=== PATIENT | female | born 1945 | race Caucasian/White ===

== ENCOUNTER 2021-02-13 18:36 | Emergency (ER) | payer OTHER, SELFPAY ==
--- NOTE | ~2021-02-13 | XR_ITS ---
EXAMINATION: XR CHEST CLINICAL INFORMATION: Low SP02, cough. COMPARISON: 07/29/2019 chest radiographs. TECHNIQUE: 2 views of the chest were obtained. FINDINGS: There is mild elevation of the right hemidiaphragm. Mild linear markings are seen at the left lung base. No pleural effusions. The heart and mediastinal structures are unremarkable. XR/XR chest 2V IMPRESSION: Mild left basilar linear atelectasis. A developing infiltrate cannot be excluded.
[2021-02-13 19:33] VITALS: BP 124/49; PULSE 94; RESP 16; TEMP 37; O2SAT 92; BMI 27.9
[2021-02-13 20:03] LABS: COVID-19 Test Positive (Negative); IDNOW Serial# 9DD0AD1C
[2021-02-13 20:26] VITALS: BP 103/42; PULSE 85; RESP 16; TEMP 37.8; O2SAT 93
[2021-02-13 22:13] LABS: Basophils Percent Auto 0.2 % (0-2); Imm Gran Abs Auto 0.02 X10*3/uL (0.00-0.03); Imm Gran Pct Auto 0.3 % (0.0-0.4); MANUAL DIFF FLAG SCAN; PLT CLUMP 1; SCAN SMEAR FLAG 1
[2021-02-13 22:15] LABS: Hematocrit 39.2 % (37-47); Hemoglobin 13.2 g/dl (12.0-16.0); Lymphocytes Absolute Auto 0.8 X10*3/uL (1.2-4.9); Lymphocytes Percent Auto 12.9 % (20-40); Mean Corpuscular HGB Conc 33.7 g/dl (31.0-35.0); Mean Corpuscular Hemoglobin 28.6 pg (27.0-33.0); Mean Platelet Volume 11.1 fL (9.4-12.3); Monocytes Absolute Auto 0.6 X10*3/uL (0.1-1.2); Monocytes Percent Auto 10.2 % (2-11); Neutrophils Absolute Auto 4.5 X10*3/uL (2.0-8.3); Neutrophils Percent Auto 76.4 % (45-73); Platelet Count 123 X10*3/uL (160-400); Red Blood Count 4.61 X10*6/uL (4.20-5.50); Red Cell Distribution Width 13.8 % (11.0-16.0); White Blood Count 5.9 X10*3/uL (4.8-10.8)
[2021-02-13] MEDS: dexAMETHasone sod phosphate 4 MG/ML VIAL IVPUSH (22:16)
[2021-02-13] MEDS: cefTRIAXone sodium 1 GM in 0.9 % Sodium Chloride 50 ML IV (22:16)
[2021-02-13] MEDS: 0.9 % Sodium Chloride 1,000 ML 999 ML IVCONT (22:17)
[2021-02-13 22:21] LABS: D Dimer 869 NG/ML
[2021-02-13 22:23] VITALS: BP 118/35; PULSE 88; RESP 18; O2SAT 92
[2021-02-13 22:24] LABS: Lactic Acid 1.1 mmol/L (0.5-2.0)
[2021-02-13 22:26] LABS: Anion Gap 12 (12-20); Blood Urea Nitrogen 14 mg/dL (9-16); Calcium 8.6 mg/dL (8.4-10.2); Carbon Dioxide 27 mmol/L (22-29); Chloride 99 mmol/L (96-108); Creatinine Clr Calc Pharmacy 77.7; Estimated Glomerular Filt Rate > 60; Glucose Random 120 mg/dL (60-115); Potassium 3.7 mmol/L (3.3-5.1); Sodium 134 mmol/L (135-145)
[2021-02-13 22:37] LABS: SLIDE REVIEW VERIFIED
[2021-02-13 23:07] VITALS: BP 158/66; PULSE 70; RESP 16; O2SAT 99
--- NOTE | 2021-02-13 23:11 | ED.URI ---
HPI - URI/Sore Throat General Chief Complaint: Upper Respiratory Symptoms Stated Complaint: not feeling good Time Seen by Provider: 02/13/21 21:23 Source: patient and family Mode of arrival: ambulatory Limitations: no limitations History of Present Illness HPI Narrative: Patient has been sick for last 3 weeks with cold cough symptoms loss hers taste headache body aches dizziness coughing up mucopurulent phlegm other family member also sick patient not been vaccinated against COVID-19 denies any significant shortness of breath saturating 93% at room air Related Data Previous Rx's Medication Instructions Recorded lidocaine 5 % topical patch 1 patch TOPICAL DAILY #30 ea 03/24/20 naproxen 500 mg tablet 500 mg PO BID PRN #30 tab 03/24/20 cefpodoxime 200 mg tablet 200 mg PO BID #20 tab 02/13/21 dexamethasone 6 mg tablet 6 mg PO DAILY #7 tab 02/13/21 (Decadron) Allergies Allergy/AdvReac Type Severity Reaction Status Date / Time cortisone [CORTISONE] Allergy Mild RASH Verified 02/13/21 19:33 erythromycin base Allergy Unknown RASH Verified 02/13/21 19:33 [ERYTHROMYCIN BASE] nitrofurantoin Allergy Unknown RASH Verified 02/13/21 19:33 [From MACROBID] Sulfa (Sulfonamide Allergy Unknown HIVES Verified 02/13/21 19:33 Antibiotics) [SULFA (SULFONAMIDE ANTIBIOTICS)] tetanus and diphtheria Allergy Unknown UNKNOWN Verified 02/13/21 19:33 toxoids [TETANUS&DIPHTHERIA TOXOID] Cortisone Allergy Unknown Rash Uncoded 02/13/21 19:33 Macrolids Allergy Unknown Rash Uncoded 02/13/21 19:33 sulfa drugs Allergy Unknown Rash Uncoded 02/13/21 19:33 Tetanus Allergy Unknown Rash Uncoded 02/13/21 19:33 tetnaus toxoid Allergy Unknown Rash Uncoded 02/13/21 19:33 Review of Systems Review of Systems: Yes all other systems are reviewed and are negative PMFSH Past Medical History Medical History No known health problems Social History Social History Advance Directives: No Advance Directives Information Provided: No Physical Exam Vital Signs: Vital Signs: Last Vital Signs Temp 100.1 F 02/13/21 20:26 Pulse 82 02/13/21 23:34 Resp 16 02/13/21 23:34 BP 130/50 L 02/13/21 23:34 Pulse Ox 93 02/13/21 23:34 Body Mass Index 27.9 Appearance: Alert. Oriented X3. No acute distress. Eyes: PERRLA, No Nystagmus ENT: Pharynx normal. Oral Mucosa moist hard of hearing Neck: Normal inspection. Neck supple. CVS: Normal heart rate and rhythm. Pulses normal. Respiratory: No respiratory distress. Equal air entry bilateral, no wheezing/rales/rhonchi Abdomen: Soft and nontender. Bowel sounds are present, no mass palpable, no CVA tenderness Skin: Skin warm and dry. Normal skin color. Normal skin turgor. Extremities: No lower extremity edema. MDM - URI/Sore Throat MDM Narrative Medical decision making narrative: Patient with COVID-19 infection with no acute shortness of breath will discharge patient home on Decadron and cefpodoxime advised to come back to the ER if increased shortness of breath Lab Data Attestation: I reviewed the patient's lab results. Result diagrams: 02/13/21 21:57 02/13/21 21:57 Labs: Lab Results 02/13/21 02/13/21 02/13/21 Range/Units 19:45 21:57 21:57 WBC 5.9 (4.8-10.8) X10*3/uL RBC 4.61 (4.20-5.50) X10*6/uL Hgb 13.2 (12.0-16.0) g/dl Hct 39.2 (37-47) % MCV 85.0 (80-98) fL MCH 28.6 (27.0-33.0) pg MCHC 33.7 (31.0-35.0) g/dl RDW 13.8 (11.0-16.0) % Plt Count 123 L (160-400) X10*3/uL MPV 11.1 (9.4-12.3) fL Immature Gran % (Auto) 0.3 (0.0-0.4) % Neut % (Auto) 76.4 H (45-73) % Lymph % (Auto) 12.9 L (20-40) % [place] % (Auto) 10.2 (2-11) % Eos % (Auto) 0.0 (0-4) % Baso % (Auto) 0.2 (0-2) % Lymph # (Auto) 0.8 L (1.2-4.9) X10*3/uL [place] # (Auto) 0.6 (0.1-1.2) X10*3/uL Eos # (Auto) 0.0 (0.0-0.4) X10*3/uL Baso # (Auto) 0.0 (0.0-0.2) X10*3/uL Abs Immat Gran (auto) 0.02 (0.00-0.03) X10*3/uL Absolute Neuts (auto) 4.5 (2.0-8.3) X10*3/uL Absolute Nucleated RBC 0.000 (0.0-0.012) X10*3/uL Nucleated RBC % (auto) 0.0 (0.0-0.2) /100WBC Smear Tech's Comments VERIFIED D-Dimer NG/ML Sodium 134 L (135-145) mmol/L Potassium 3.7 (3.3-5.1) mmol/L Chloride 99 (96-108) mmol/L Carbon Dioxide 27 (22-29) mmol/L Anion Gap 12 (12-20) BUN 14 (9-16) mg/dL Creatinine 0.73 (0.5-1.4) mg/dL Estim Creat Clear Calc 77.7 Estimated GFR > 60 Random Glucose 120 H (60-115) mg/dL Lactic Acid (0.5-2.0) mmol/L Calcium 8.6 (8.4-10.2) mg/dL COVID-19 (HELEN) Positive A (Negative) COVID-19 Clin Com See Note 02/13/21 02/13/21 Range/Units 21:57 21:57 WBC (4.8-10.8) X10*3/uL RBC (4.20-5.50) X10*6/uL Hgb (12.0-16.0) g/dl Hct (37-47) % MCV (80-98) fL MCH (27.0-33.0) pg MCHC (31.0-35.0) g/dl RDW (11.0-16.0) % Plt Count (160-400) X10*3/uL MPV (9.4-12.3) fL Immature Gran % (Auto) (0.0-0.4) % Neut % (Auto) (45-73) % Lymph % (Auto) (20-40) % [place] % (Auto) (2-11) % Eos % (Auto) (0-4) % Baso % (Auto) (0-2) % Lymph # (Auto) (1.2-4.9) X10*3/uL [place] # (Auto) (0.1-1.2) X10*3/uL Eos # (Auto) (0.0-0.4) X10*3/uL Baso # (Auto) (0.0-0.2) X10*3/uL Abs Immat Gran (auto) (0.00-0.03) X10*3/uL Absolute Neuts (auto) (2.0-8.3) X10*3/uL Absolute Nucleated RBC (0.0-0.012) X10*3/uL Nucleated RBC % (auto) (0.0-0.2) /100WBC Smear Tech's Comments D-Dimer 869 NG/ML Sodium (135-145) mmol/L Potassium (3.3-5.1) mmol/L Chloride (96-108) mmol/L Carbon Dioxide (22-29) mmol/L Anion Gap (12-20) BUN (9-16) mg/dL Creatinine (0.5-1.4) mg/dL Estim Creat Clear Calc Estimated GFR Random Glucose (60-115) mg/dL Lactic Acid 1.1 (0.5-2.0) mmol/L Calcium (8.4-10.2) mg/dL COVID-19 (HELEN) (Negative) COVID-19 Clin Com Discharge Plan Discharge Clinical Impression: COVID-19 Patient Disposition: Home, Self-Care Instructions: COVID-19 (Coronavirus Disease 2019) (ED) Additional Instructions: Precautions and isolation as advised Antibiotic and Decadron as prescribed Follow-up with PCP or report to the ER if increased shortness of breath Prescriptions: New cefpodoxime 200 mg tablet 200 mg PO BID Qty: 20 RF: 0 dexamethasone [Decadron] 6 mg tablet 6 mg PO DAILY Qty: 7 RF: 0 No Action lidocaine 5 % adhesive patch,medicated 1 patch topical DAILY Qty: 30 RF: 0 naproxen 500 mg tablet 500 mg PO BID PRN (Reason: pain) Qty: 30 RF: 1 Interventions: ED Discharge Assessment Last Done: 02/13/21 23:36 Discharge Date/Time: 02/13/21 23:36
--- NOTE | 2021-02-13 23:12 | PC.NURSE ---
pt c collar taken off by provider.
[2021-02-13 23:34] VITALS: BP 130/50; PULSE 82; RESP 16; O2SAT 93
== END 2021-02-13 23:36 | disposition home or self-care (01) ==
PROVIDERS: Emergency Provider Internal Medicine; PCP Internal Medicine
DX: U07.1 COVID-19 (principal)
CPT/HCPCS: 36415; 71046; 80048; 83605; 85025; 85379; 87040; 87077; 87186; 87205; 87635; 96365; 96375; 99284; J0696; J1100

== ENCOUNTER 2021-02-15 10:11 | Inpatient (IN) | payer OTHER, SELFPAY ==
[2021-02-15] VITALS (7 sets, daily range): BP systolic 132–189; BP diastolic 70–86; PULSE 61–74; RESP 16–20; TEMP 36.4–37.2; O2SAT 88–97; BMI 28.3
--- NOTE | ~2021-02-15 | CT_ITS ---
EXAMINATION: CT ANGIOGRAM OF THE CHEST WITH AND WITHOUT CONTRAST (CT PULMONARY ANGIOGRAM FOR PE) CLINICAL INFORMATION: Reason for Exam COVID positive r/o PE COMPARISON: CT abdomen and pelvis October 2016 and chest x-ray from earlier the same day TECHNIQUE: Prior to contrast administration, noncontrast localization images were obtained. Subsequently, multidetector volumetric imaging was performed from the thoracic inlet to below the diaphragms following the administration of 65 mL Omnipaque 350 intravenous contrast. No contrast reaction reported Sagittal, coronal, and MIP oblique sagittal reformatted images were obtained on the CT workstation, uploaded to PACS, and reviewed. This CT examination was performed using dose optimization techniques as appropriate, variously including the following: *Automated exposure control *Adjustment of mA and/or kV according to patient size (this includes techniques or standardized protocols for targeted exams where dose is matched to indication/reason for exam; i.e. extremities or head) *Use of iterative reconstruction technique Total exam dose-length product 316 mGy-cm FINDINGS: QUALITY OF STUDY/CONTRAST BOLUS: Satisfactory. PULMONARY ARTERIES: No central or segmental pulmonary emboli. THORACIC AORTA: No aneurysm or dissection. LUNG: There are scattered areas of groundglass attenuation seen in the upper lobes, right greater than left, right middle lobe and lingula. There is a atelectasis or small infiltrate seen in the dependent bilateral lower lobes. There is mild generalized bronchiectasis. PLEURA: No pleural effusion or pneumothorax. MEDIASTINUM: Normal heart size. No pericardial effusion. No hilar or mediastinal lymphadenopathy. No evidence of septal bowing or right heart strain. CHEST WALL/AXILLA: No axillary or internal mammary lymphadenopathy. OSSEOUS STRUCTURES: No acute or suspicious osseous abnormality. UPPER ABDOMEN: There is pneumobilia seen in the liver. This is new from October 2016 CT scan. There is a 5 mm low-attenuation lesion high in the dome of the liver probably representing a cyst. This is unchanged from October 2016 exam. No reflux of contrast into the hepatic veins to suggest elevated right heart pressures. CT/CT angio chest PE protocol IMPRESSION: No evidence of pulmonary embolism. Scattered areas of groundglass attenuation and denser atelectasis or pneumonia in both lower lobes. Findings are compatible with Covid infection. VTE: negative
--- NOTE | ~2021-02-15 | XR_ITS ---
EXAMINATION: XR CHEST CLINICAL INFORMATION: Dyspnea COMPARISON: Previous chest x-ray 02/13/2021 TECHNIQUE: Frontal view of the chest was obtained. FINDINGS: The cardiac and mediastinal contours are stable. There is increasing atelectasis or infiltrate at the left lung base and new atelectasis or small infiltrate at the right lung base. There is no pleural effusion. There is slight elevation of the right hemidiaphragm. There are degenerative changes of the spine. XR/XR chest 1V IMPRESSION: Worsening bibasilar atelectasis or infiltrates, left greater than right.
--- NOTE | 2021-02-15 10:31 | ED.RECABL ---
HPI - Recheck/Abnormal Lab/Rx General Chief Complaint: Recheck/Abnormal Lab/Rx Stated Complaint: covid + Time Seen by Provider: 02/15/21 10:15 Source: patient and EMS Mode of arrival: EMS Limitations: no limitations History of Present Illness complaint: abnormal lab (+ blood cultures after visit on 02/13 for COVID - 2/2 [facility] in clusters called) Initial visit (ago): day(s) (2) Initial visit for: other (COVID symptoms) Returns today for: called because of abnormal lab/test Symptoms since prior visit: improved Context: called for abnormal lab result Associated symptoms: malaise and other (feels winded at times, she was sent home on cefpodoxime and dexamethasone took both today) Treatments prior to arrival: other (cefpodoxime and dexamethasone) Related Data Home Medications Medication Instructions Recorded Confirmed lidocaine 5 % topical patch 1 patch TOPICAL DAILY PRN 02/15/21 02/15/21 Previous Rx's Medication Instructions Recorded naproxen 500 mg tablet 500 mg PO BID PRN #30 tab 03/24/20 cefpodoxime 200 mg tablet 200 mg PO BID #20 tab 02/13/21 dexamethasone 6 mg tablet 6 mg PO DAILY #7 tab 02/13/21 (Decadron) Allergies Allergy/AdvReac Type Severity Reaction Status Date / Time cortisone [CORTISONE] Allergy Mild RASH Verified 02/13/21 19:33 erythromycin base Allergy Unknown RASH Verified 02/13/21 19:33 [ERYTHROMYCIN BASE] nitrofurantoin Allergy Unknown RASH Verified 02/13/21 19:33 [From MACROBID] Sulfa (Sulfonamide Allergy Unknown HIVES Verified 02/13/21 19:33 Antibiotics) [SULFA (SULFONAMIDE ANTIBIOTICS)] tetanus and diphtheria Allergy Unknown UNKNOWN Verified 02/13/21 19:33 toxoids [TETANUS&DIPHTHERIA TOXOID] Cortisone Allergy Unknown Rash Uncoded 02/13/21 19:33 Macrolids Allergy Unknown Rash Uncoded 02/13/21 19:33 sulfa drugs Allergy Unknown Rash Uncoded 02/13/21 19:33 Tetanus Allergy Unknown Rash Uncoded 02/13/21 19:33 tetnaus toxoid Allergy Unknown Rash Uncoded 02/13/21 19:33 Review of Systems Review of Systems: Constitutional : No Weight loss, No Fever, No Chills, pos Fatigue, pos Malaise ENT/Mouth : No sore throat, No Rhinorrhea Eyes: No Eye Pain, No Swelling, No Redness Cardiovascular : No Chest Pain, pos SOB, pos Dyspnea on Exertion, No Orthopnea, No Edema, No Palpitations Respiratory : pos Cough, No Sputum, No Wheezing Gastrointestinal : No Nausea, No Vomiting, No Diarrhea, No Constipation, No abdominal Pain, No Hematochezia, No Melena Genitourinary : No Dysuria, No Urinary Frequency, No Hematuria, Musculoskeletal : No joint pain, pos Myalgias, No Joint Swelling Skin : No Skin Lesions, No rash Neuro : No Weakness, No Numbness, No Dizziness, No Headache Psych : No Anxiety/Panic, No Depression Heme/Lymph: No Bruising, No Bleeding,No Lymphadenopathy Endocrine : No Polyuria, No Polydipsia All other systems reviewed and are negative [facility] Past Medical History Attestation statement: The following information was validated with the patient. Medical History (Updated 02/15/21 @ 13:59 by Mynor Pacheco MD) COVID-19 Neuropathy No known health problems Social History Social History Household Members: Spouse Patient Tobacco Use Status: Never used Tobacco Advance Directives: No Advance Directives Information Provided: No Physical Exam Vital Signs: Vital Signs: Last Vital Signs Pulse 73 02/15/21 12:24 Resp 16 02/15/21 10:22 BP 132/70 02/15/21 10:22 Pulse Ox 96 02/15/21 12:24 Oxygen Flow Rate 2 02/15/21 10:22 Body Mass Index 28.3 Appearance: Alert. Oriented X3. No acute distress. Eyes: Pupils equal, round and reactive to light. ENT: Pharynx normal. Neck: Normal inspection. Neck supple. CVS: Normal heart rate and rhythm. Pulses normal. Respiratory: No respiratory distress. Breath sounds decreased at bases - faint rhonchi noted Abdomen: Soft and nontender. Skin: Skin warm and dry. Normal skin color. Normal skin turgor. Extremities: No lower extremity edema. No calf ttp Neuro: Oriented X 3. No motor deficit. No sensory deficit. Course Course Course Narrative: 88% on RA - plan to admit for hypoxia CTA for PE ordered MDM - Recheck/Abnormal Lab/Rx MDM Narrative Medical decision making narrative: 75 yo female with neuropathy here with call back from 07/15 [facility] from 02/13 she has some dyspnea but no fevers, dry cough - at this time will repeat labs, CXR, COVID panel - observe for the need for O2. No CP. Cultures to be finalized at 2pm per lab Lab Data Result diagrams: 02/15/21 10:59 02/15/21 10:59 Labs: Lab Results 02/15/21 02/15/21 02/15/21 Range/Units 10:59 10:59 10:59 WBC 10.6 (4.8-10.8) X10*3/uL RBC 4.62 (4.20-5.50) X10*6/uL Hgb 13.3 (12.0-16.0) g/dl Hct 39.2 (37-47) % MCV 84.8 (80-98) fL MCH 28.8 (27.0-33.0) pg MCHC 33.9 (31.0-35.0) g/dl RDW 13.7 (11.0-16.0) % Plt Count 192 D (160-400) X10*3/uL MPV 11.4 (9.4-12.3) fL Immature Gran % (Auto) 0.3 (0.0-0.4) % Neut % (Auto) 82.1 H (45-73) % Lymph % (Auto) 8.6 L (20-40) % [place] % (Auto) 8.9 (2-11) % Eos % (Auto) 0.0 (0-4) % Baso % (Auto) 0.1 (0-2) % Lymph # (Auto) 0.9 L (1.2-4.9) X10*3/uL [place] # (Auto) 0.9 (0.1-1.2) X10*3/uL Eos # (Auto) 0.0 (0.0-0.4) X10*3/uL Baso # (Auto) 0.0 (0.0-0.2) X10*3/uL Abs Immat Gran (auto) 0.03 (0.00-0.03) X10*3/uL Absolute Neuts (auto) 8.7 H (2.0-8.3) X10*3/uL Absolute Nucleated RBC 0.000 (0.0-0.012) X10*3/uL Nucleated RBC % (auto) 0.0 (0.0-0.2) /100WBC D-Dimer 822 NG/ML Sodium 141 (135-145) mmol/L Potassium 3.6 (3.3-5.1) mmol/L Chloride 106 (96-108) mmol/L Carbon Dioxide 24 (22-29) mmol/L Anion Gap 15 (12-20) BUN 22 H D (9-16) mg/dL Creatinine 0.76 (0.5-1.4) mg/dL Estim Creat Clear Calc 75.0 Estimated GFR > 60 Random Glucose 125 H (60-115) mg/dL Lactic Acid (0.5-2.0) mmol/L Calcium 9.3 D (8.4-10.2) mg/dL Magnesium 2.3 (1.6-2.6) mg/dL Total Bilirubin 0.5 (0.0-1.0) mg/dL Direct Bilirubin 0.3 (0.0-0.5) mg/dL AST 41 H (5-31) U/L ALT 46 H (0-31) U/L Alkaline Phosphatase 48 (39-117) U/L Lactate Dehydrogenase 197 (122-220) U/L Total Creatine Kinase 343 H (26-140) U/L Total Protein 6.0 L (6.5-8.0) g/dL Albumin 3.7 (3.5-5.0) g/dL Urine Color Urine Appearance Urine pH (5.0-8.0) Ur Specific [place] (1.005-1.025) Urine Protein (NEG-TRACE) MG/DL Urine Glucose (UA) (NEG) MG/DL Urine Ketones (NEG) MG/DL Urine Blood (NEG) Urine Nitrite (NEG) Ur Leukocyte Esterase (NEG) Urine RBC (0) /HPF Urine WBC (0-4) /HPF Ur Squamous Epith Cells /LPF Urine Bacteria /LPF Hyaline Casts /LPF Urine Mucus /LPF 02/15/21 02/15/21 Range/Units 10:59 13:11 WBC (4.8-10.8) X10*3/uL RBC (4.20-5.50) X10*6/uL Hgb (12.0-16.0) g/dl Hct (37-47) % MCV (80-98) fL MCH (27.0-33.0) pg MCHC (31.0-35.0) g/dl RDW (11.0-16.0) % Plt Count (160-400) X10*3/uL MPV (9.4-12.3) fL Immature Gran % (Auto) (0.0-0.4) % Neut % (Auto) (45-73) % Lymph % (Auto) (20-40) % [place] % (Auto) (2-11) % Eos % (Auto) (0-4) % Baso % (Auto) (0-2) % Lymph # (Auto) (1.2-4.9) X10*3/uL [place] # (Auto) (0.1-1.2) X10*3/uL Eos # (Auto) (0.0-0.4) X10*3/uL Baso # (Auto) (0.0-0.2) X10*3/uL Abs Immat Gran (auto) (0.00-0.03) X10*3/uL Absolute Neuts (auto) (2.0-8.3) X10*3/uL Absolute Nucleated RBC (0.0-0.012) X10*3/uL Nucleated RBC % (auto) (0.0-0.2) /100WBC D-Dimer NG/ML Sodium (135-145) mmol/L Potassium (3.3-5.1) mmol/L Chloride (96-108) mmol/L Carbon Dioxide (22-29) mmol/L Anion Gap (12-20) BUN (9-16) mg/dL Creatinine (0.5-1.4) mg/dL Estim Creat Clear Calc Estimated GFR Random Glucose (60-115) mg/dL Lactic Acid 1.5 (0.5-2.0) mmol/L Calcium (8.4-10.2) mg/dL Magnesium (1.6-2.6) mg/dL Total Bilirubin (0.0-1.0) mg/dL Direct Bilirubin (0.0-0.5) mg/dL AST (5-31) U/L ALT (0-31) U/L Alkaline Phosphatase (39-117) U/L Lactate Dehydrogenase (122-220) U/L Total Creatine Kinase (26-140) U/L Total Protein (6.5-8.0) g/dL Albumin (3.5-5.0) g/dL Urine Color YELLOW Urine Appearance CLEAR Urine pH 6.0 (5.0-8.0) Ur Specific [place] 1.015 (1.005-1.025) Urine Protein 1+ H (NEG-TRACE) MG/DL Urine Glucose (UA) NEG (NEG) MG/DL Urine Ketones NEG (NEG) MG/DL Urine Blood NEG (NEG) Urine Nitrite NEG (NEG) Ur Leukocyte Esterase NEG (NEG) Urine RBC 0 (0) /HPF Urine WBC 0-2 (0-4) /HPF Ur Squamous Epith Cells 2+ /LPF Urine Bacteria TRACE /LPF Hyaline Casts 0-2 /LPF Urine Mucus 2+ /LPF Discharge Plan Discharge Clinical Impression: COVID-19, Hypoxia, Positive blood cultures, Pneumonia due to 2019-nCoV Patient Disposition: Admitted As Inpatient
[2021-02-15 11:09] LABS: MANUAL DIFF FLAG NO
[2021-02-15 11:10] LABS: Basophils Percent Auto 0.1 % (0-2); Hematocrit 39.2 % (37-47); Hemoglobin 13.3 g/dl (12.0-16.0); Imm Gran Abs Auto 0.03 X10*3/uL (0.00-0.03); Imm Gran Pct Auto 0.3 % (0.0-0.4); Lymphocytes Absolute Auto 0.9 X10*3/uL (1.2-4.9); Lymphocytes Percent Auto 8.6 % (20-40); Mean Corpuscular HGB Conc 33.9 g/dl (31.0-35.0); Mean Corpuscular Hemoglobin 28.8 pg (27.0-33.0); Mean Corpuscular Volume 84.8 fL (80-98); Mean Platelet Volume 11.4 fL (9.4-12.3); Monocytes Absolute Auto 0.9 X10*3/uL (0.1-1.2); Monocytes Percent Auto 8.9 % (2-11); Neutrophils Absolute Auto 8.7 X10*3/uL (2.0-8.3); Neutrophils Percent Auto 82.1 % (45-73); Platelet Count 192 X10*3/uL (160-400); Red Blood Count 4.62 X10*6/uL (4.20-5.50); Red Cell Distribution Width 13.7 % (11.0-16.0); White Blood Count 10.6 X10*3/uL (4.8-10.8)
--- NOTE | 2021-02-15 11:16 | PC.NURSE ---
ambulaTION TRIAL, PT DESAT TO 88 - REPORTING DIZZINESS AND sob. PT REPORTS DIZZINESS IS USUAL FOR HER SHE HAS EAR PROBLEMS. PUT PT BACK ON 2L NC
[2021-02-15 11:19] LABS: D Dimer 822 NG/ML; Lactic Acid 1.5 mmol/L (0.5-2.0)
[2021-02-15] MEDS: cefTRIAXone sodium 1 GM in 0.9 % Sodium Chloride 50 ML IV (11:26)
[2021-02-15 11:31] LABS: Alanine Aminotransferase 46 U/L (0-31); Albumin Level 3.7 g/dL (3.5-5.0); Alkaline Phosphatase 48 U/L (39-117); Anion Gap 15 (12-20); Aspartate Amino Transferase 41 U/L (5-31); Bilirubin Direct 0.3 mg/dL (0.0-0.5); Bilirubin Total 0.5 mg/dL (0.0-1.0); Blood Urea Nitrogen 22 mg/dL (9-16); Calcium 9.3 mg/dL (8.4-10.2); Carbon Dioxide 24 mmol/L (22-29); Chloride 106 mmol/L (96-108); Estimated Glomerular Filt Rate > 60; Glucose Random 125 mg/dL (60-115); Lactate Dehydrogenase 197 U/L (122-220); Magnesium 2.3 mg/dL (1.6-2.6); Potassium 3.6 mmol/L (3.3-5.1); Sodium 141 mmol/L (135-145)
[2021-02-15] MEDS: Doxycycline Hyclate 100 MG in 0.9 % Sodium Chloride 250 ML 166.67 MG IV (12:19)
[2021-02-15 13:26] LABS: Glucose Urine UA NEG (NEG); Leukocyte Esterase Urine NEG (NEG); Nitrite Urine NEG (NEG); Specific Gravity - Urine 1.015 (1.005-1.025); UACC Culture Trigger NO; Urine Blood NEG (NEG); Urine Ketones NEG (NEG); Urine Protein 1+ MG/DL (NEG-TRACE)
[2021-02-15 13:29] LABS: Appearance Urine CLEAR; Color Urine YELLOW
[2021-02-15 13:43] LABS: Bacteria Urine TRACE /LPF; Hyaline Casts Urine 0-2 /LPF; Mucus Urine 2+ /LPF; RBC Urine 0 /HPF (0); Squamous Epithelial Cell Urine 2+ /LPF; WBC Urine 0-2 /HPF (0-4)
--- NOTE | 2021-02-15 13:54 | P.HPHOSP_ITS ---
History of Present Illness Date of Service: 02/15/21 Chief Complaint: called to come to ED d/t positive blood cultures from earlier visit on 02/13 75 year female with no chronic medial condition, seen in ED on 02/13 with cold symptoms and diagonosed with covid and send home since she was not hypoxic, blood cultures were done routinely at that time and today cultures came back positive for gram positive cocci 2/2, no fever. Also noted to be hypoxic with O2 88 on room improved 97 with oxygen. Being admited for bacteremia. She is NOT vaccinated for covid. CXR shows worsening infiltrate and given Doxy and Ceftriaxone in ED Review of Systems Review of Systems: Gen: no fever Resp: no sob, + cough CV: no chest, no RODRIGUEZ, no leg edema GI: No n/v, no abd pain Neuro: No confusion Yes all other systems are reviewed and are negative [facility] Medical History (Updated 02/15/21 @ 13:59 by Mynor Pacheco MD) COVID-19 Neuropathy No known health problems Social History Household Members: Spouse Patient Tobacco Use Status: Never used Tobacco Advance Directives: No Advance Directives Information Provided: No Meds Allergies Allergy/AdvReac Type Severity Reaction Status Date / Time cortisone [CORTISONE] Allergy Mild RASH Verified 02/13/21 19:33 erythromycin base Allergy Unknown RASH Verified 02/13/21 19:33 [ERYTHROMYCIN BASE] nitrofurantoin Allergy Unknown RASH Verified 02/13/21 19:33 [From MACROBID] Sulfa (Sulfonamide Allergy Unknown HIVES Verified 02/13/21 19:33 Antibiotics) [SULFA (SULFONAMIDE ANTIBIOTICS)] tetanus and diphtheria Allergy Unknown UNKNOWN Verified 02/13/21 19:33 toxoids [TETANUS&DIPHTHERIA TOXOID] Cortisone Allergy Unknown Rash Uncoded 02/13/21 19:33 Macrolids Allergy Unknown Rash Uncoded 02/13/21 19:33 sulfa drugs Allergy Unknown Rash Uncoded 02/13/21 19:33 Tetanus Allergy Unknown Rash Uncoded 02/13/21 19:33 tetnaus toxoid Allergy Unknown Rash Uncoded 02/13/21 19:33 Active Medications: Current Medications Generic Name Dose Route Start Last Admin Trade Name Freq PRN Reason Stop Dose Admin Acetaminophen 650 mg 02/15/21 13:45 Acetaminophen 325 Mg Tablet PO Q6H PRN Pain, Mild (Pain Scale 1-3) Dexamethasone 6 mg 02/16/21 09:00 Dexamethasone 6 Mg Tablet PO DAILY [facility] Enoxaparin Sodium 40 mg 02/15/21 13:45 Enoxaparin Sodium 40 Mg/0.4 Ml Syringe SUBCUT Q24H [facility] Vancomycin HCl 750 mg/ Sodium 265 mls @ 265 mls/hr 02/15/21 14:00 Chloride IV Q12H SHAMAR Magnesium Hydroxide 30 ml 02/15/21 13:45 Milk Of Magnesia 30 Ml Oral.Susp PO DAILY PRN Constipation Melatonin 6 mg 02/15/21 13:45 Melatonin 3 Mg Tablet PO BEDTIME PRN Insomnia Pharmacy Consult 1 each 02/15/21 13:51 Consult Rx Vancomycin Dosing MISCELLANE DAILY PRN Consult order Sodium Chloride 3 ml 02/15/21 16:00 0.9 % Sodium Chloride Flush 3 Ml Syringe IVFLUSH QSHIFT [facility] Home Medications Medication Instructions Recorded Confirmed Last Taken Type lidocaine 5 % topical patch 1 patch TOPICAL DAILY PRN 02/15/21 02/15/21 Unknown History Physical Exam Vital Signs and Narrative: Vital Signs: Last Vital Signs Pulse 73 02/15/21 12:24 Resp 16 02/15/21 10:22 BP 132/70 02/15/21 10:22 Pulse Ox 96 02/15/21 12:24 Oxygen Flow Rate 2 02/15/21 10:22 Body Mass Index 28.3 Constitutional Awake and Alert, No apparent distress HEENT anicteric Neck Supple, No lymphadenopathy Cardiovascular RRR, No M/R/G, S1 S2, No S3 S4, No pedal edema Respiratory Lungs clear, No respiratory distress Gastrointestinal Non tender, Non-distended Skin No rash No lymphadenopathy Neurological Alert & oriented x3 Psychological Appropriate affect Results Labs CBC and Chem 7: 02/15/21 10:59 02/15/21 10:59 Labs: Laboratory Results - last 24 hr 02/15/21 02/15/21 02/15/21 10:59 10:59 10:59 MCV 84.8 MCH 28.8 MCHC 33.9 RDW 13.7 Plt Count 192 D MPV 11.4 Immature Gran % (Auto) 0.3 Neut % (Auto) 82.1 H Lymph % (Auto) 8.6 L [place] % (Auto) 8.9 Eos % (Auto) 0.0 Baso % (Auto) 0.1 Lymph # (Auto) 0.9 L [place] # (Auto) 0.9 Eos # (Auto) 0.0 Baso # (Auto) 0.0 Abs Immat Gran (auto) 0.03 Absolute Neuts (auto) 8.7 H Absolute Nucleated RBC 0.000 Nucleated RBC % (auto) 0.0 D-Dimer 822 Anion Gap 15 Estim Creat Clear Calc 75.0 Estimated GFR > 60 Random Glucose 125 H Lactic Acid Calcium 9.3 D Magnesium 2.3 Total Bilirubin 0.5 Direct Bilirubin 0.3 AST 41 H ALT 46 H Alkaline Phosphatase 48 Lactate Dehydrogenase 197 Total Creatine Kinase 343 H Total Protein 6.0 L Albumin 3.7 Urine Color Urine Appearance Urine pH Ur Specific [place] Urine Protein Urine Glucose (UA) Urine Ketones Urine Blood Urine Nitrite Ur Leukocyte Esterase Urine RBC Urine WBC Ur Squamous Epith Cells Urine Bacteria Hyaline Casts Urine Mucus 02/15/21 02/15/21 10:59 13:11 MCV MCH MCHC RDW Plt Count MPV Immature Gran % (Auto) Neut % (Auto) Lymph % (Auto) [place] % (Auto) Eos % (Auto) Baso % (Auto) Lymph # (Auto) [place] # (Auto) Eos # (Auto) Baso # (Auto) Abs Immat Gran (auto) Absolute Neuts (auto) Absolute Nucleated RBC Nucleated RBC % (auto) D-Dimer Anion Gap Estim Creat Clear Calc Estimated GFR Random Glucose Lactic Acid 1.5 Calcium Magnesium Total Bilirubin Direct Bilirubin AST ALT Alkaline Phosphatase Lactate Dehydrogenase Total Creatine Kinase Total Protein Albumin Urine Color YELLOW Urine Appearance CLEAR Urine pH 6.0 Ur Specific [place] 1.015 Urine Protein 1+ H Urine Glucose (UA) NEG Urine Ketones NEG Urine Blood NEG Urine Nitrite NEG Ur Leukocyte Esterase NEG Urine RBC 0 Urine WBC 0-2 Ur Squamous Epith Cells 2+ Urine Bacteria TRACE Hyaline Casts 0-2 Urine Mucus 2+ Imaging Radiologist's Impressions: Impressions Chest X-Ray 02/15/21 10:30 IMPRESSION: Worsening bibasilar atelectasis or infiltrates, left greater than right. Assessment and Plan (1) COVID-19: Status: Acute (2) Hypoxia: Status: Acute (3) Positive blood cultures: Status: Inactive (4) Pneumonia due to 2019-nCoV: Status: Acute (5) Gram-positive bacteremia: Status: Acute 75/F with acute hypoxic respiratory failure due to covid pneumonia, also with gram positive bacteremia of 2/2 from 02/13 1/ Acute hypoxic respiratory failur due to covid 19 2/Covid 19 pneumonia--in unvaccinated patient -Treat IV decadron -Oxygen and wean as tolereated -Empiric Ceftriaxone for pneumonia which is likely viral but could be superimposed bacteremia 2/ Gram positive cocci bacteremia--couid be contamination -Vancomycin to cover stapy -Repeat culture, if turns to be reall get ID consult, and echo DVT Prophylaxis with [employer] Stroke Does the patient have a stroke diagnosis?: No VTE Prior VTE?: No VTE Risk Level:: Medical - moderate - high VTE Device Contraindication: N/A - Device Ordered VTE Drug Contraindication: N/A - Med Ordered
--- NOTE | 2021-02-15 14:00 | PC.NURSE ---
Dr. Pacheco at bedside
[2021-02-15] MEDS: iohexoL 350 MG/ML 100 ML INFUS..BTL IV (14:42)
[2021-02-15] MEDS: vancomycin HCL 1,000 MG in 0.9 % Sodium Chloride 250 ML 270 MG IV (14:51)
[2021-02-15] MEDS: Enoxaparin Sodium 40 MG/0.4 ML SYRINGE SUBCUT (15:14)
[2021-02-15] MEDS: 0.9 % Sodium Chloride Flush 3 ML SYRINGE IVFLUSH ×2 (17:28→19:38)
[2021-02-16] MEDS: vancomycin HCL 1,000 MG in 0.9 % Sodium Chloride 250 ML 270 MG IV ×2 (02:43→14:29)
[2021-02-16 03:54] VITALS: BP 125/56; PULSE 82; RESP 18; TEMP 36.2; O2SAT 96
[2021-02-16 07:44] VITALS: BP 180/86; PULSE 64; RESP 18; TEMP 36.9; O2SAT 96
[2021-02-16 08:10] LABS: Creatinine Clr Calc Pharmacy 87.7; Estimated Glomerular Filt Rate > 60
[2021-02-16] MEDS: 0.9 % Sodium Chloride Flush 3 ML SYRINGE IVFLUSH ×2 (08:57→20:02)
[2021-02-16] MEDS: dexAMETHasone 6 MG TABLET PO (08:57)
[2021-02-16 09:16] VITALS: O2SAT 97
[2021-02-16 11:59] VITALS: BP 168/73; PULSE 62; RESP 18; TEMP 37.2; O2SAT 95
--- NOTE | 2021-02-16 13:33 | MHC.CM.PN ---
CM SPOKE WITH PT VIA T/C TO PTS CELL ([phone]). PT REPORTS SHE LIVES AT HOME WITH HER WHO IS BED BOUND, PT REPORTS THEIR SON IS THE GEOTECHNICIAN FOR BOTH OF THEM. PT REPORTS SHE HAS A CANE AND A WALKER AT HOME BUT USUALLY ONLY NEEDS THE CANE. PT ALSO HAS A CCA CM THAT CHECKS IN PERIODICALLY. PT DOES NOT HAVE A HCP BUT SAYS SHE HAS REQUESTED ONE BE SENT TO HER FROM HER PCP OFFICE BUT IS UNSURE IF IT EVER CAME. CM WILL SEND A BLANK DOCUMENT AND INFORMATION ALONG WITH PTS IMM COPY TO HER HOME. CURRENT DC PLAN IS HOME WITH RESUMPTION OF SERVICES FAMILY TO TRANSPORT
[2021-02-16] MEDS: Enoxaparin Sodium 40 MG/0.4 ML SYRINGE SUBCUT (14:29)
--- NOTE | 2021-02-16 14:47 | P.PNIM_ITS ---
Subjective Subjective Date of Service: 02/16/21 Interval History: f/u covid, hypoxia, better, O2 95 on 1 liter, no distrss Review of Systems Gen: no fever Resp: no sob, no cough CV: no chest, no RODRIGUEZ, no leg edema GI: No n/v, no abd pain Neuro: No confusion Physical Exam Vital Signs: Vital Signs: Last Vital Signs Temp 98.9 F 02/16/21 11:59 Pulse 62 02/16/21 11:59 Resp 18 02/16/21 11:59 BP 168/73 H 02/16/21 11:59 Pulse Ox 95 02/16/21 11:59 Oxygen Flow Rate 2 02/15/21 10:22 Body Mass Index 28.3 General: AO X 3, no acute distress Resp: CTA bilateral CVS: S1,S2,RRR GI: +BS, NT, no distention Skin: No rash Neuro: motor grossly intact Psych: appropriate affect Objective Data Active Medications Acetaminophen (Acetaminophen 325 Mg Tablet) 650 mg PO Q6H PRN PRN Reason: Pain, Mild (Pain Scale 1-3) Dexamethasone (Dexamethasone 6 Mg Tablet) 6 mg PO DAILY [facility] Last Admin: 02/16/21 08:57 Dose: 6 mg Documented by: JUAN DAVID Enoxaparin Sodium (Enoxaparin Sodium 40 Mg/0.4 Ml Syringe) 40 mg SUBCUT Q24H [facility] Last Admin: 02/16/21 14:29 Dose: 40 mg Documented by: JUA NDAVID Vancomycin HCl 1,000 mg/ (Sodium Chloride) 270 mls @ 270 mls/hr IV Q12H [facility] Last Admin: 02/16/21 14:29 Dose: 270 mls/hr Documented by: JUAN DAVID Magnesium Hydroxide (Milk Of Magnesia 30 Ml Oral.Susp) 30 ml PO DAILY PRN PRN Reason: Constipation Melatonin (Melatonin 3 Mg Tablet) 6 mg PO BEDTIME PRN PRN Reason: Insomnia Pharmacy Consult (Consult Rx Vancomycin Dosing) 1 each MISCELLANE DAILY PRN PRN Reason: Consult order Sodium Chloride (0.9 % Sodium Chloride Flush 3 Ml Syringe) 3 ml IVFLUSH QSHIFT [facility] Last Admin: 02/16/21 08:57 Dose: 3 ml Documented by: JUAN DAVID Labs CBC & Chem 7: 02/15/21 10:59 02/16/21 07:14 Labs: Laboratory Results - last 24 hr 02/16/21 07:14 Estim Creat Clear Calc 87.7 Estimated GFR > 60 Microbiology Microbiology Results: Microbiology 02/15/21 11:01 Blood Culture - Preliminary Blood - Venous No growth after 24 hours. 02/15/21 10:59 Blood Culture - Preliminary Blood - Venous No growth after 24 hours. Assessment and Plan (1) Pneumonia due to 2019-nCoV: Status: Acute (2) COVID-19: Status: Acute Assessment and Plan: 75/F with acute hypoxic respiratory failure due to covid pneumonia, also with gram positive bacteremia of 2/2 from 02/13 1/ Acute hypoxic respiratory failur due to covid 19 2/Covid 19 pneumonia--in unvaccinated patient -Treat IV decadron D2 -Oxygen and wean as tolereated -Empiric Ceftriaxone for pneumonia which is likely viral, CT shows covid pattern PNA, no feever, no increase in WBC so hold further antibiotics 2/ Gram positive cocci bacteremia--Staph species, repeat cultures negative, suspect possible contamination -Continue Vancomycin for now -ID consult - DVT Prophylaxis with Lovenoc Probably home tomorrow Quality Stroke Does the patient have a stroke diagnosis?: No VTE Prior VTE?: No VTE Risk Level:: Medical - moderate - high VTE Device Contraindication: N/A - Device Ordered VTE Drug Contraindication: N/A - Med Ordered
[2021-02-16 15:10] VITALS: BP 154/79; PULSE 69; RESP 20; TEMP 36.2; O2SAT 96
[2021-02-16 19:25] VITALS: BP 134/70; PULSE 60; RESP 20; TEMP 36.1; O2SAT 94
[2021-02-17] VITALS (7 sets, daily range): BP systolic 161–193; BP diastolic 81–90; PULSE 57–70; RESP 18–20; TEMP 36.5–37.1; O2SAT 93–98
[2021-02-17] MEDS: vancomycin HCL 1,000 MG in 0.9 % Sodium Chloride 250 ML 270 MG IV (02:05)
--- NOTE | 2021-02-17 02:16 | PC.NURSE ---
Pt noted to be satting 74%, assessed and asymptomatic. Pt stated she felt she was breathing fine. Raised HOB and placed her on 1L NC. Sats between 89-96%. Will continue to monitor.
[2021-02-17 02:29] LABS: Vancomycin Trough 5.6 mcg/mL (10.0-20.0)
[2021-02-17] MEDS: 0.9 % Sodium Chloride Flush 3 ML SYRINGE IVFLUSH (08:19)
[2021-02-17] MEDS: dexAMETHasone 6 MG TABLET PO (08:19)
--- NOTE | 2021-02-17 12:58 | P.DS_ITS ---
DS: Providers Provider Date of Service: 02/17/21 Date of admission: 02/15/21 13:46 Primary care physician: Kira Rivas DO Consults: 02/16/21 14:52 Consult to Infectious Diseases Routine Consulting Provider: Quynh Khoury Reason for consultation: bacteremia Has provider been notified: No DS: Diagnosis Discharge Diagnosis (1) Pneumonia due to 2019-nCoV: Status: Resolved (2) COVID-19: Status: Acute DS: Summary Hospital Course Hospital Course: Chief Complaint: called to come to ED d/t positive blood cultures from earlier visit on 02/13 75 year female with no chronic medial condition, seen in ED on 02/13 with cold symptoms and diagonosed with covid and send home since she was not hypoxic, blood cultures were done routinely at that time and today cultures came back positive for gram positive cocci 07/15, no fever. Also noted to be hypoxic with O2 88 on room improved 97 with oxygen. Being admited for bacteremia. She is NOT vaccinated for covid. CXR shows worsening infiltrate and given Doxy and Ceftriaxone in ED. Hospital course: covid 19, covid pneumonia, acute hypoxic respiratory failure--CT finding consis tent with covid PNA, not febrile so no antibiotic give. Hypoxia treated with oxygen, and given Dexamethasone and will continue dexamethasone for 10 days. She has been weaned of oxygen. Bacteremia this was incidental finding from previous visit, treated with IV Vancomycin, final culture show Staph Hominis which is likely contamination and therefore does not need further antibiotics Time Spent with Patient Time attestation: Total time spent providing and/or coordinating discharge services: Discharge coordination time: Greater than 30 minutes Quality: Stroke Does the patient have a stroke diagnosis?: No Physical Exam Vital Signs: Vital Signs: Last Vital Signs Temp 98.7 F 02/17/21 12:00 Pulse 70 02/17/21 12:00 Resp 20 02/17/21 12:00 BP 161/85 H 02/17/21 12:00 Pulse Ox 96 02/17/21 12:00 Oxygen Flow Rate 2 02/15/21 10:22 Body Mass Index 28.3 DS: Data Data Completed and Pending Labs on day of discharge: Laboratory Results - last 24 hr 02/17/21 01:54 Vancomycin Trough 5.6 L Preliminary micro results at discharge 02/15/21 11:01 Blood Culture - Preliminary Blood - Venous No growth after 24 hours. 02/15/21 10:59 Blood Culture - Preliminary Blood - Venous No growth after 24 hours. Discharge Plan Discharge Anticipated Discharge Date/Time: 02/17/21 15:00 Patient Disposition: Home, Self-Care Discharge Diagnosis: Covid 19 pneumonia Referrals: Kira Ford DO [Primary Care Provider] - 1 Week Discharge Medications: Continued cefpodoxime 200 mg tablet 200 mg PO BID Qty: 20 RF: 0 dexamethasone [Decadron] 6 mg tablet 6 mg PO DAILY Qty: 7 RF: 0 lidocaine 5 % adhesive patch,medicated 1 patch topical DAILY PRN (Reason: Pain, Mild) RF: 0 naproxen 500 mg tablet 500 mg PO BID PRN (Reason: pain) Qty: 30 RF: 1 Discharge Orders: Discharge Order (Routine); Ordered 02/17/21 Ordered By: Mynor Pacheco Diet: advance to usual diet Activity on Discharge: As tolerated Stand Alone Forms: Patient Portal Discharge page Care Plan Goals: Full recovery from covid Health Concerns: covid 19 Plan of Treatment: take dexamethasonne and antibiotics as before and follow up with your Doctor in a week Assessment: as above Discharge Date/Time: 02/17/21 16:10
--- NOTE | 2021-02-17 13:24 | W.PM.IDCN ---
History of Present Illness Data of Consult Service Date: 02/17/21 Requesting physician: Mynor Pacheco Primary Care Provider: DO KILO Ahumada Reason for consult: COVID,bacteremia She presents with shortness of breath to ER She has symptoms for 3 weeks. She has positive COVID test She has blood cultures staph hominis Review of Systems Review of Systems: Yes all other systems are reviewed and are negative PMFSH Past Medical History Medical History COVID-19 Neuropathy No known health problems Social History Social History Household Members: Spouse and Children Housing: House Do you presently have visiting nurse or other home services: Yes (son is OPERATING ROOM SURGICAL TECHNOLOGIST) Patient Tobacco Use Status: Never used Tobacco service: No Current occupational status: unemployed and disabled Meds Allergies Allergy/AdvReac Type Severity Reaction Status Date / Time cortisone [CORTISONE] Allergy Mild RASH Verified 02/13/21 19:33 erythromycin base Allergy Unknown RASH Verified 02/13/21 19:33 [ERYTHROMYCIN BASE] nitrofurantoin Allergy Unknown RASH Verified 02/13/21 19:33 [From MACROBID] Sulfa (Sulfonamide Allergy Unknown HIVES Verified 02/13/21 19:33 Antibiotics) [SULFA (SULFONAMIDE ANTIBIOTICS)] tetanus and diphtheria Allergy Unknown UNKNOWN Verified 02/13/21 19:33 toxoids [TETANUS&DIPHTHERIA TOXOID] Cortisone Allergy Unknown Rash Uncoded 02/13/21 19:33 Macrolids Allergy Unknown Rash Uncoded 02/13/21 19:33 sulfa drugs Allergy Unknown Rash Uncoded 02/13/21 19:33 Tetanus Allergy Unknown Rash Uncoded 02/13/21 19:33 tetnaus toxoid Allergy Unknown Rash Uncoded 02/13/21 19:33 Active Medications: Current Medications Generic Name Dose Route Start Last Admin Trade Name Freq PRN Reason Stop Dose Admin Acetaminophen 650 mg 02/15/21 13:45 Acetaminophen 325 Mg Tablet PO Q6H PRN Pain, Mild (Pain Scale 1-3) Dexamethasone 6 mg 02/16/21 09:00 02/17/21 08:19 Dexamethasone 6 Mg Tablet PO 6 mg DAILY SHAMAR Administration Enoxaparin Sodium 40 mg 02/15/21 14:00 02/16/21 14:29 Enoxaparin Sodium 40 Mg/0.4 Ml Syringe SUBCUT 40 mg Q24H SHAMAR Administration Magnesium Hydroxide 30 ml 02/15/21 13:45 Milk Of Magnesia 30 Ml Oral.Susp PO DAILY PRN Constipation Melatonin 6 mg 02/15/21 13:45 Melatonin 3 Mg Tablet PO BEDTIME PRN Insomnia Pharmacy Consult 1 each 02/15/21 13:51 Consult Rx Vancomycin Dosing MISCELLANE DAILY PRN Consult order Sodium Chloride 3 ml 02/15/21 16:00 02/17/21 08:19 0.9 % Sodium Chloride Flush 3 Ml Syringe IVFLUSH 3 ml QSHIFT SHAMAR Administration Home Medications Medication Instructions Recorded Confirmed Last Taken Type lidocaine 5 % topical patch 1 patch TOPICAL DAILY PRN 02/15/21 02/15/21 Unknown History Physical Exam Vital Signs: Vital Signs: Last Vital Signs Temp 98.7 F 02/17/21 12:00 Pulse 70 02/17/21 12:00 Resp 20 02/17/21 12:00 BP 161/85 H 02/17/21 12:00 Pulse Ox 96 02/17/21 12:00 Oxygen Flow Rate 2 02/15/21 10:22 Body Mass Index 28.3 Const: General: cooperative HENMT: Head: Yes normal to inspection Mouth: Normal oral and palatal mucosa present Resp: Effort & Inspection: normal respiratory effort Cardio: Rate: regular rate Rhythm: regular rhythm GI: Palpation (GI): nontender Extrem: General: Yes normal to inspection Results Labs CBC & Chem 7: 02/15/21 10:59 02/16/21 07:14 Microbiology Microbiology Results: Microbiology 02/15/21 11:01 Blood - Venous Blood Culture - Preliminary No growth after 48 hours. 02/15/21 10:59 Blood - Venous Blood Culture - Preliminary No growth after 48 hours. Assessment and Plan (1) COVID-19: Status: Resolved Symptoms COVID 3 weeks and due to duration doesnt meet qualification for Remdesivir Can use Dexamethasone for 10 d Blood cultures staph hominis contaminant so stop Vancomycin (2) Hypoxia: Status: Resolved
--- NOTE | 2021-02-17 15:51 | MHC.CM.PN ---
Discharge to home no services family transport.
== END 2021-02-17 16:10 | disposition home or self-care (01) | DRG 177 ==
LOC: HO.ED 11:45 → HO.IMC 14:16
PROVIDERS: Admitting Provider Internal Medicine; Emergency Provider Emergency Medicine; PCP Internal Medicine; Visit Provider Internal Medicine
DX: U07.1 COVID-19 (principal); J12.82 Pneumonia due to coronavirus disease 2019; J96.01 Acute respiratory failure with hypoxia; Z88.2 Allergy status to sulfonamides; Z79.899 Other long term (current) drug therapy
CPT/HCPCS: 36415; 71045; 71275; 80048; 80076; 80202; 81001; 82550; 82565; 83605; 83615; 83735; 85025; 85379; 87040; 96361; 96365; 99285; J0696; J1650; J3370; J8540; Q9967

== ENCOUNTER 2021-12-07 12:20 | Emergency (ER) | payer OTHER, SELFPAY ==
--- NOTE | ~2021-12-07 | XR_ITS ---
EXAMINATION: XR ELBOW, LEFT CLINICAL INFORMATION: Fall COMPARISON: None TECHNIQUE: AP, lateral, and oblique views of the left elbow. FINDINGS: The bones and soft tissues are normal. No fracture or joint effusion. Alignment is anatomic. Joint spaces are maintained. XR/XR elbow LT min 3V IMPRESSION: Normal left elbow.
--- NOTE | ~2021-12-07 | CT_ITS ---
EXAMINATION: CT BRAIN, CT CERVICAL SPINE AND CT FACIAL BONES WITHOUT CONTRAST. CLINICAL INFORMATION: Status post fall with head/face and chest injury. COMPARISON: None TECHNIQUE: 5 mm thin axial and reformatted 2 mm thin sagittal and coronal images of brain were obtained. Subsequently axial 3 mm thin and reformatted sagittal and coronal 1.5 mm thin images of facial bones were obtained. Lastly axial 3 mm thin and reformatted 2 mm thin sagittal and coronal images of cervical spine were obtained. DLP 601. FINDINGS: Brain: There is no acute intra-axial, extra-axial bleed, masses or midline shift. There is no acute infarction in evolution. There is no edema. Bone windows reveal no calvarial abnormality. There is benign hyperostosis frontalis interna. There is no scalp soft tissue swelling. Bilateral paranasal sinuses and mastoid air cells are well-aerated. Cervical spine: On sagittal reconstructed images there is maintained cervical lordosis. The vertebral heights and alignment is normal. There is minimal loss of C5-6 and C6-7 disc heights with mild ventral spondylosis C4-5, C5-6 and C6-7 disc levels. The craniovertebral junction and C1-C2 alignment is normal. There is no visible acute fracture, dislocation or subluxation seen. The prevertebral and paravertebral soft tissues are normal. The lung apices are clear. The thyroid lobes are symmetrical and normal. Visualized salivary glands unremarkable. Facial bones: There is normal aeration of paranasal sinuses with small polyps or retention cyst left maxillary there is a small air-fluid level in the left sphenoid sinus. The bony sinus richards, cribriform plate and the lamina papyracea are intact. There is a moderate deviation nasal septum to the right. The nasopharyngeal and nasal cavity airway is widely patent. No visible nasal bone fracture. The bony orbits, optic globe and intraorbital soft tissues are symmetrical and normal. No preseptal soft tissue swelling seen. Bilateral TM joints are symmetrical and normal. There is no visible fracture involving the mandible. No periapical cyst. CT/CT cervical spine wo con IMPRESSION: No acute intracranial process seen. Degenerative disc changes C5-6 and C6-7 disc levels with ventral spondylosis C4-5 through C6-7 disc levels. There is no visible any visible acute fracture or dislocation. There is no visible maxillofacial, nasal or mandibular fracture.
--- NOTE | ~2021-12-07 | XR_ITS ---
EXAMINATION: BILATERAL KNEE X-RAY CLINICAL INFORMATION: Pain. Fall. COMPARISON: None TECHNIQUE: 4 views of each knee FINDINGS: Left: Bone alignment is normal. No fracture or dislocation is seen. There are mild degenerative changes of the medial femoral tibial joint. There is a small osteophyte at the quadriceps tendon insertion to the patella. There is no joint effusion. Right: Bone alignment is normal. No fracture or dislocation is seen. The joint spaces are normal. There is a small osteophyte at the quadriceps tendon insertion to the patella. There is no joint effusion. XR/XR knee LT 4V IMPRESSION: No fracture or dislocation. Mild degenerative changes.
--- NOTE | ~2021-12-07 | CT_ITS ---
EXAMINATION: CT CHEST WITHOUT CONTRAST CLINICAL INFORMATION: Chest injury status post fall COMPARISON: CTA chest 02/15/2021 TECHNIQUE: Multidetector volumetric CT imaging of the chest was done. Axial MIP volume rendering provided. Sagittal and coronal reformatted images were obtained. This CT examination was performed using dose optimization techniques as appropriate, variously including the following: *Automated exposure control *Adjustment of mA and/or kV according to patient size (this includes techniques or standardized protocols for targeted exams where dose is matched to indication/reason for exam; i.e. extremities or head) *Use of iterative reconstruction technique DLP: 623 mGy-cm FINDINGS: The heart is normal in size. There is no pericardial effusion. Normal caliber thoracic aorta. No gross mediastinal lymphadenopathy. No pathologically enlarged axillary lymph nodes. Central airways are patent. Lungs are well aerated. There is no lobar consolidation. No pleural effusion or pneumothorax. No suspicious pulmonary nodules. Visualized portion of the upper abdomen partially visualize pneumobilia. A few subcentimeter hypodense hepatic foci are too small to accurately characterize. Diffuse osteopenia. Mild degenerative changes of the spine. CT/CT chest wo con IMPRESSION: -No CT evidence for acute abnormality within the chest. Fleischner guidelines were followed.
--- NOTE | ~2021-12-07 | XR_ITS ---
EXAMINATION: BILATERAL KNEE X-RAY CLINICAL INFORMATION: Pain. Fall. COMPARISON: None TECHNIQUE: 4 views of each knee FINDINGS: Left: Bone alignment is normal. No fracture or dislocation is seen. There are mild degenerative changes of the medial femoral tibial joint. There is a small osteophyte at the quadriceps tendon insertion to the patella. There is no joint effusion. Right: Bone alignment is normal. No fracture or dislocation is seen. The joint spaces are normal. There is a small osteophyte at the quadriceps tendon insertion to the patella. There is no joint effusion. XR/XR knee RT 4V IMPRESSION: No fracture or dislocation. Mild degenerative changes.
[2021-12-07 13:39] VITALS: BP 143/84; PULSE 66; RESP 17; TEMP 35.9; O2SAT 96; BMI 27.0
--- NOTE | 2021-12-07 14:27 | ED_ITS ---
HPI - Fall General Chief Complaint: Fall Stated Complaint: fall/head inj/body pain Time Seen by Provider: 12/07/21 14:19 Source: patient and family (Daughter at bedside) Mode of arrival: wheelchair Limitations: no limitations History of Present Illness HPI Narrative: 76-year-old female with a past medical history of neuropathy and COVID-19 along with tendinitis of the left shoulder presenting to the ED with her daughter at bedside with complaints of a mechanical fall after she was pushing her ergonomic chair and she tripped on the doorway of her house and the ergonomic chair went to the right and the patient went to the left and she hit her left side of her head/face/neck/chest/rib cage/bilateral knees and left elbow prior to arrival. She denies any symptoms prior to the fall. She denies being on any blood thinners. She reports only pain after the fall no other symptoms. She reports this was mechanical fall. She denies any loss of consciousness or any other injuries complaints or concerns at this time. 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) Fall from: standing Fall witnessed: no Place fall occurred: home Loss of consciousness: none Prolonged down time: no Symptoms prior to fall: none Context: tripped/slipped Location of injury: head, face, neck and chest Location of injury - extremities: left: elbow and bilateral: knee Severity: moderate Quality: aching Associated symptoms (after fall): denies Related Data Home Medications Medication Instructions Recorded Confirmed lidocaine 5 % topical patch 1 patch topical DAILY PRN Pain, 02/15/21 02/15/21 Mild Previous Rx's Medication Instructions Recorded naproxen 500 mg tablet 500 mg PO BID PRN pain #30 tabs 03/24/20 cefpodoxime 200 mg tablet 200 mg PO BID #20 tabs 02/13/21 dexamethasone 6 mg tablet 6 mg PO DAILY #7 tabs 02/13/21 (Decadron) Allergies Allergy/AdvReac Type Severity Reaction Status Date / Time cortisone [CORTISONE] Allergy Mild RASH Verified 02/13/21 19:33 erythromycin base Allergy Unknown RASH Verified 02/13/21 19:33 [ERYTHROMYCIN BASE] nitrofurantoin Allergy Unknown RASH Verified 02/13/21 19:33 [From MACROBID] Sulfa (Sulfonamide Allergy Unknown HIVES Verified 02/13/21 19:33 Antibiotics) [SULFA (SULFONAMIDE ANTIBIOTICS)] tetanus and diphtheria Allergy Unknown UNKNOWN Verified 02/13/21 19:33 toxoids [TETANUS&DIPHTHERIA TOXOID] Cortisone Allergy Unknown Rash Uncoded 02/13/21 19:33 Macrolids Allergy Unknown Rash Uncoded 02/13/21 19:33 sulfa drugs Allergy Unknown Rash Uncoded 02/13/21 19:33 Tetanus Allergy Unknown Rash Uncoded 02/13/21 19:33 tetnaus toxoid Allergy Unknown Rash Uncoded 02/13/21 19:33 Review of Systems Review of Systems: Constitutional : No Weight loss, No Fever, No Chills, No Night Sweats, No Fatigue, No Malaise ENT/Mouth : No Hearing loss, No Ear Pain, No Nasal Congestion, No Sinus Pain, No Hoarseness, No sore throat, No Rhinorrhea, No Swallowing Difficulty Eyes: No Eye Pain, No Swelling, No Redness, No Foreign Body, No Discharge, No Vision Changes Cardiovascular : No Chest Pain, No SOB, No Dyspnea on Exertion, No Orthopnea, No Edema, No Palpitations Respiratory : No Cough, No Sputum, No Wheezing, No Smoke Exposure, No Dyspnea Gastrointestinal : No Nausea, No Vomiting, No Diarrhea, No Constipation, No abdominal Pain, No Hematochezia, No Melena Genitourinary : no irregular bleeding, No Dysuria, No Urinary Frequency, No Hematuria, No Urinary Incontinence, No Urgency, No Flank Pain, No Urinary Flow Changes, No Hesitancy Musculoskeletal : + head/facial/ribs left sided/left elbow and bilateral knee joint pain, No Myalgias, No Joint Swelling Skin : No Skin Lesions, No rash Neuro : No Weakness, No Numbness, No Paresthesias, No Loss of Consciousness, No Dizziness, No Headache Psych : No Anxiety/Panic, No Depression, No SI/HI/AH/VH, No Social Issues, Heme/Lymph: No Bruising, No Bleeding,No Lymphadenopathy Endocrine : No Polyuria, No Polydipsia, No Temperature Intolerance Yes all other systems are reviewed and are negative [facility] Past Medical History Attestation statement: The following information was validated with the patient. Source: old records reviewed, obtained from family and nursing notes reviewed Medical History No known health problems Social History Social History Household Members: Spouse and Children Housing: House Do you presently have visiting nurse or other home services: Yes (son is [employer]) Patient Tobacco Use Status: Never used Tobacco Advance Directives: No Advance Directives Information Provided: No service: No Current occupational status: unemployed and disabled Physical Exam Vital Signs: Vital Signs: Last Vital Signs Temp 96.7 F L 12/07/21 13:39 Pulse 66 12/07/21 13:39 Resp 17 12/07/21 13:39 BP 143/84 H 12/07/21 13:39 Pulse Ox 96 12/07/21 13:39 O2 Del Method 12/07/21 13:39 BMI result Body Mass Index 27.0 vital signs have been reviewed as normal and appeared to be correct. Blood pressure 143/84 Heart rate normal. Respiration rate normal. Temperature 96.7. Oxygen saturation normal. Appearance: Alert. Oriented X3. No acute distress. Head: To the left side of the forehead/eyebrow patient has mild soft tissue swelling/ecchymosis and tenderness palpation. Otherwise the rest of the external exam is within normal limits and there are no Tran signs or raccoon eyes noted. Eyes: PERRLA. EOMI. Conjunctiva and sclera normal. Eyelids normal. ENT: EAC normal. TM's Normal. No septal hematoma noted. No hemotympanum noted. Pharynx normal. Uvula midline. Moist mucous membranes. No lesions/ulcerations or masses noted on the tongue. Normal voice. No trismus noted. No drooling noted. No muffled voice noted. Neck: Normal inspection. Neck supple. FROM. No adenopathy. Thyroid Normal. No tracheal deviation noted. No crepitus is noted. No meningeal signs. No neck mass noted. No signs of trauma noted. CVS: Normal heart rate and rhythm. Heart sound normal. Pulses normal throughout. No murmurs/rales/gallops. Respiratory: No respiratory distress. Painless inspiration. Breath sounds normal. No wheezes/rales/rhonchi noted. Chest wall/left breast moderate tende rness palpation at the lower aspect of the left chest wall with ecchymosis noted. No crepitus is noted. No accessory muscle usage noted or decreased air movement noted. Abdomen: Soft and nontender. Bowel sounds normal in all 4 quadrants. No distention noted. No organomegaly noted. No visible injury noted. Back: Full range of motion noted. Nontender. No signs of trauma. Patient neuro intact bilaterally and distally on all 4 extremities. Patient's reflexes intact bilaterally and distally on all 4 extremities. No rashes/lesion/induration/fluctuance or signs of infection noted. Skin: Skin warm and dry. Normal skin color. Normal skin turgor. No rashes/lesions/lacerations noted. Extremities: Patient with mild tenderness palpation to bilateral knees with an abrasion to the left knee. No active bleeding. No obvious ligamentous or tendon injury noted to bilateral knees. Patient with mild tenderness palpation to the left elbow with a superficial abrasion. No active bleeding or foreign bodies. There is no obvious deformities. No obvious ligamentous or tendon injury noted to the right elbow. Patient has full range of motion of bilateral knees and right elbow. Otherwise all other Extremities exhibit normal range of motion and nontender. Neuro: Oriented X 3. No motor deficit. No sensory deficit. Reflexes normal. Normal steady gait. No focal neuro deficits noted. CN's II-XII intact bilaterally? Vascular: + radial pulses/+ 2 distal pedal pulses/+2 dorsalis pedis b/l. Normal cap refill. No cyanosis noted to upper extremity nails and lower extremity toes nails. Course Course Course Narrative: 14:30pm - 76-year-old female with a past medical history of neuropathy and COVID-19 along with tendinitis of the left shoulder presenting to the ED with her daughter at bedside with complaints of a mechanical fall after she was pushing her ergonomic chair and she tripped on the doorway of her house and the ergonomic chair went to the right and the patient went to the left and she hit her left side of her head/face/neck/chest/rib cage/bilateral knees and right elbow prior to arrival. She denies any symptoms prior to the fall. She denies being on any blood thinners. She reports only pain after the fall no other symptoms. She reports this was mechanical fall. She denies any loss of consciousness or any other injuries complaints or concerns at this time. Will obtain a CT scan of brain/cervical spine/facial bone/chest, x-ray of left elbow and bilateral knees and re-evaluate. Reevaluation(s) Reevaluation #1: - CT scan of brain/cervical spine/facial bones and chest revealed chronic changes no acute processes noted. X-ray of left elbow and bilateral knees negative for any acute processes. Patient most likely muscular skeletal pain/sprains therefore will DC home with instructions return if any new or worsening symptoms follow up with primary care provider as patient reports she does not want any medications because she is allergic to multiple medications. Time: 17:15 MDM - Fall Medical Records Attestation: I reviewed the patient's medical records. Imaging Data X-rays of bilateral knees and left elbow: Attestation: I personally reviewed and interpreted this imaging study as follows: Radiologist's impression: FINDINGS: Left: Bone alignment is normal. No fracture or dislocation is seen. There are mild degenerative changes of the medial femoral tibial joint. There is a small osteophyte at the quadriceps tendon insertion to the patella. There is no joint effusion. Right: Bone alignment is normal. No fracture or dislocation is seen. The joint spaces are normal. There is a small osteophyte at the quadriceps tendon insertion to the patella. There is no joint effusion. ? XR/XR knee RT 4V IMPRESSION: No fracture or dislocation. Mild degenerative changes. FINDINGS: The bones and soft tissues are normal. No fracture or joint effusion. Alignment is anatomic. Joint spaces are maintained.? XR/XR elbow LT min 3V IMPRESSION: Normal left elbow. CT scan of brain/cervical spine/facial bone/chest without contrast: Attestation: I personally reviewed and interpreted this imaging study as follows: Radiologist's impression: FINDINGS: Brain: There is no acute intra-axial, extra-axial bleed, masses or midline shift. There is no acute infarction in evolution. There is no edema. Bone windows reveal no calvarial abnormality. There is benign hyperostosis frontalis interna. There is no scalp soft tissue swelling. Bilateral paranasal sinuses and mastoid air cells are well-aerated. Cervical spine: On sagittal reconstructed images there is maintained cervical lordosis. The vertebral heights and alignment is normal. There is minimal loss of C5-6 and C6-7 disc heights with mild ventral spondylosis C4-5, C5-6 and C6-7 disc levels. The craniovertebral junction and C1-C2 alignment is normal. There is no visible acute fracture, dislocation or subluxation seen. The prevertebral and paravertebral soft tissues are normal. The lung apices are clear. The thyroid lobes are symmetrical and normal. Visualized salivary glands unremarkable. Facial bones: There is normal aeration of paranasal sinuses with small polyps or retention cyst left maxillary there is a small air-fluid level in the left sphenoid sinus. The bony sinus richards, cribriform plate and the lamina papyracea are intact. There is a moderate deviation nasal septum to the right. The nasopharyngeal and nasal cavity airway is widely patent. No visible nasal bone fracture. The bony orbits, optic globe and intraorbital soft tissues are symmetrical and normal. No preseptal soft tissue swelling seen. Bilateral TM joints are symmetrical and normal. There is no visible fracture involving the mandible. No periapical cyst. CT/CT head/brain wo con IMPRESSION: No acute intracranial process seen. ? Degenerative disc changes C5-6 and C6-7 disc levels with ventral spondylosis C4-5 through C6-7 disc levels. There is no visible any visible acute fracture or dislocation. ? There is no visible maxillofacial, nasal or mandibular fracture. ? FINDINGS: The heart is normal in size. There is no pericardial effusion. Normal caliber thoracic aorta. No gross mediastinal lymphadenopathy. No pathologically enlarged axillary lymph nodes. Central airways are patent. Lungs are well aerated. There is no lobar consolidation. No pleural effusion or pneumothorax. No suspicious pulmonary nodules. Visualized portion of the upper abdomen partially visualize pneumobilia. A few subcentimeter hypodense hepatic foci are too small to accurately characterize. Diffuse osteopenia. Mild degenerative changes of the spine. CT/CT chest wo con IMPRESSION: -No CT evidence for acute abnormality within the chest.? ? Fleischner guidelines were followed. Discharge Plan Discharge Clinical Impression: Fall, Left knee sprain, Right knee sprain, Abrasion of left knee, Sprain of elbow, left, Contusion of left eyebrow, Head injury, Contusion of face, Chest wall contusion, Chest wall injury Patient Disposition: Home, Self-Care Instructions: Contusion in Adults (ED), Head Injury (ED) Prescriptions: No Action cefpodoxime 200 mg tablet 200 mg PO BID Qty: 20 0RF Rx Instructions: must administer with a meal/food dexamethasone [Decadron] 6 mg tablet 6 mg PO DAILY Qty: 7 0RF lidocaine 5 % adhesive patch,medicated 1 patch topical DAILY PRN (Reason: Pain, Mild) Label Comments: pt uses patch on upper back Rx Instructions: leave on most painful area for up to 12 hrs naproxen 500 mg tablet 500 mg PO BID PRN (Reason: pain) Qty: 30 1RF Referrals: Hazel Rivas MD [Primary Care Provider] - 2 days Print Language: Cuban
[2021-12-07 17:18] VITALS: BP 138/66; PULSE 64; RESP 16; TEMP 36.7; O2SAT 100
== END 2021-12-07 17:27 | disposition home or self-care (01) ==
PROVIDERS: Emergency Provider Emergency Medicine Emergency Medical Services; PCP Internal Medicine
DX: S20.212A Contusion of left front wall of thorax, initial encounter (principal); S83.92XA Sprain of unspecified site of left knee, initial encounter; S83.91XA Sprain of unspecified site of right knee, initial encounter; S00.12XA Contusion of left eyelid and periocular area, initial encounter; S80.212A Abrasion, left knee, initial encounter; M25.522 Pain in left elbow; G44.309 Post-traumatic headache, unspecified, not intractable; W01.10XA Fall on same level from slipping, tripping and stumbling with subsequent striking against unspecified object, initial encounter; Y93.9 Activity, unspecified; Y92.9 Unspecified place or not applicable; Y99.9 Unspecified external cause status; Z79.899 Other long term (current) drug therapy
CPT/HCPCS: 70450; 70486; 71250; 72125; 73080; 73564; 99283

== ENCOUNTER 2021-12-24 12:20 | Outpatient (REF) | payer OTHER, SELFPAY ==
--- NOTE | ~2021-12-24 | XR_ITS ---
EXAMINATION: XR SHOULDER, RIGHT CLINICAL INFORMATION: Pain. COMPARISON: None TECHNIQUE: AP external rotation, Grashey, scapular Y, and axillary views of the right shoulder. FINDINGS: There is loss of glenohumeral joint and AC joint space with periarticular spurring. No visible acute fracture, dislocation or subluxation seen. No lytic or sclerotic process seen. The soft tissues are normal. XR/XR shoulder RT min 2V IMPRESSION: Mild degenerative changes right AC joint and right glenohumeral joint without any visible acute fracture, dislocation or subluxation.
== END 2021-12-24 12:21 | disposition home or self-care (01) ==
LOC: HO.HMGCX 12:20
DX: M25.511 Pain in right shoulder (principal)
CPT/HCPCS: 73030

== ENCOUNTER 2024-06-13 08:21 | Emergency (ER) | payer OTHER, SELFPAY ==
--- NOTE | ~2024-06-13 | CT_ITS ---
CLINICAL HISTORY: gradually worsening LYLES x [address] head without contrast Comparison: CT/SR - CT HEAD/BRAIN WO CON - 12/07/21 15:10 EDT Findings: No intra-axial mass, midline shift, hydrocephalus, or acute hemorrhage. Mild volume loss, similar to prior. Hyperostosis of the inner table, similar to prior. The visualized paranasal sinuses and mastoid air cells are normal. The orbits are unremarkable. There is no acute fracture. IMPRESSION: 1. No acute intracranial findings This document has been electronically signed by: Cedrick Bay MD on 06/13/2024 11:16:26
[2024-06-13 08:27] VITALS: BP 150/87; PULSE 78; RESP 18; TEMP 36.6; O2SAT 95; BMI 31.1
--- NOTE | 2024-06-13 08:44 | ED_ITS ---
HPI - Headache General Chief Complaint: Headache Stated Complaint: l side head pain Time Seen by Provider: 06/13/24 08:44 History of Present Illness ED Provider: Madison BOATENG Narrative: The patient is a 79-year-old woman who says that over the last month she has been having worsening headaches on the left side of her head. She went to her regular doctor's office yesterday because of this and was told that she should probably go to an emergency room because any testing that they could order from the regular doctor's office would take a long time. She therefore came here this morning. She has not had any difficulty speaking. She has not had any visual symptoms. She has not change in the function of her limbs or her gait. She has not had any fevers, sweats, chills. She does not usually get headaches. She wonders whether the headache could be caused by stress. She is currently taking care of her who is becoming increasingly demented. Related Data Allergies Allergy/AdvReac Type Severity Reaction Status Date / Time cortisone [CORTISONE] Allergy Mild RASH Verified 06/13/24 08:29 erythromycin base Allergy Unknown RASH Verified 06/13/24 08:29 [ERYTHROMYCIN BASE] nitrofurantoin Allergy Unknown RASH Verified 06/13/24 08:29 [From MACROBID] Sulfa (Sulfonamide Allergy Unknown HIVES Verified 06/13/24 08:29 Antibiotics) [SULFA (SULFONAMIDE ANTIBIOTICS)] tetanus and diphtheria Allergy Unknown UNKNOWN Verified 06/13/24 08:29 toxoids [TETANUS&DIPHTHERIA TOXOID] Cortisone Allergy Unknown Rash Uncoded 12/24/21 11:55 Macrolids Allergy Unknown Rash Uncoded 12/24/21 11:55 sulfa drugs Allergy Unknown Rash Uncoded 12/24/21 11:55 Tetanus Allergy Unknown Rash Uncoded 12/24/21 11:55 tetnaus toxoid Allergy Unknown Rash Uncoded 12/24/21 11:55 Review of Systems 2 Review of Systems: Yes all other systems are reviewed and are negative PMFSH Past Medical History Medical History No known health problems Shoulder pain, right Social History Social History Household Members: Spouse and Children Housing: House Do you presently have visiting nurse or other home services: Yes (son is RELIGIOUS EDUCATION COORDINATOR) Alcohol intake: former Patient Tobacco Use Status: Never used Tobacco Smoked in Last 30 Days: No Use of substances other than those prescribed or required for medical reasons: No Advance Directives: No Advance Directives Information Provided: No Do you have a plan to hurt others: No Plan service: No Current occupational status: unemployed and disabled Physical Exam 2 Vital Signs: Vital Signs: Last Vital Signs Temp 98 F 06/13/24 11:46 Pulse 70 06/13/24 11:46 Resp 18 06/13/24 11:46 BP 135/88 06/13/24 11:46 Pulse Ox 94 06/13/24 11:46 O2 Del Method Room Air 06/13/24 11:46 BMI result Body Mass Index 31.1 Const: Other: The patient is awake, alert, pleasant, cooperative. She has a cheerful and pleasant demeanor. She does not seem in distress. Does not demonstrate any obvious neurological deficit. HEENT: Other: Face is symmetrical. Tongue is midline. Mucous membranes moist. Posterior pharynx is normal. Tympanic membranes are normal bilaterally. Eyes: General: appearance normal, both eyes and all related structures E yelids: Yes eyelids normal Conjunctivae: conjunctivae normal Sclerae: s clerae normal Pupils: Equal, round and reactive pupils present EOM: EOMs intact bilaterally Neck: Neck: Yes no JVD Resp: Effort & Inspection: normal respiratory effort Auscultation: clear to auscultation bilaterally Cardio: Rate: regular rate Rhythm: regular rhythm Heart sounds: S1 normal heart sound present and S2 normal heart sound present GI: Other: Abdomen is soft and nontender Skin: Other: Skin is dry and unremarkable Neuro: Other: The patient is awake and alert with a normal mental status. Face is symmetrical. Speech is clear. Eye movements are normal. The patient has symmetrical strength in all extremities. No pronator drift. No obvious focal neurological deficit. Cranial nerves: Yes Equal, round and reactive pupils present Extrem: Other: No peripheral edema Medications Administered Discontinued Medications Generic Name Dose Route Start Last Admin Trade Name Freq PRN Reason Stop Dose Admin Acetaminophen 975 mg 06/13/24 11:32 06/13/24 11:40 Acetaminophen 325 Mg Tablet PO 06/13/24 11:33 975 mg ONCE ONE Administration Medical Decision Making Medical Decision Making MDM Narrative: The patient is a very pleasant 79-year-old woman who presents with complaints of a left-sided headache that has been bothering her for several weeks. Clinically the patient does not appear unwell. She has no focal neurological deficits. She does not seem toxic in any way. Given the duration of her headache I obtained a CT scan of the head which was negative. EKG is unremarkable. Basic labs are unremarkable. The patient was reassured. She should follow up with her PCP. Lab Data 06/13/24 08:55 06/13/24 08:55 Labs: Lab Results 06/13/24 06/13/24 Range/Units 08:50 08:55 WBC 7.4 (4.8-10.8) X10*3/uL RBC 4.81 (4.20-5.50) X10*6/uL Hgb 14.0 (12.0-16.0) g/dl Hct 42.1 (37.0-47.0) % MCV 87.5 (80.0-98.0) fL MCH 29.1 (27.0-33.0) pg MCHC 33.3 (31.0-35.0) g/dl RDW 13.3 (11.0-16.0) % Plt Count 199 (160-400) X10*3/uL MPV 9.7 (9.4-12.3) fL Immature Gran % (Auto) 0.1 (0.0-0.4) % Neut % (Auto) 64.2 (45-73) % Lymph % (Auto) 24.6 (20-40) % [place] % (Auto) 8.0 (2-11) % Eos % (Auto) 2.4 (0-4) % Baso % (Auto) 0.7 (0-2) % Lymph # (Auto) 1.8 (1.2-4.9) X10*3/uL [place] # (Auto) 0.6 (0.1-1.2) X10*3/uL Eos # (Auto) 0.2 (0.0-0.4) X10*3/uL Baso # (Auto) 0.1 (0.0-0.2) X10*3/uL Abs Immat Gran (auto) 0.01 (0.00-0.03) X10*3/uL Absolute Neuts (auto) 4.7 (2.0-8.3) x10*3/uL Absolute Nucleated RBC 0.000 (0.0-0.012) X10*3/uL Nucleated RBC % (auto) 0.0 (0.0-0.2) /100WBC Sodium 141 (135-145) mmol/L Potassium 4.2 (3.3-5.1) mmol/L Chloride 111 H (96-108) mmol/L Carbon Dioxide 23 (22-29) mmol/L Anion Gap 11 L (12-20) BUN 19 H (9-16) mg/dL Creatinine 0.64 (0.5-1.4) mg/dL Estim Creat Clear Calc 87.6 Estimated GFR > 60 Random Glucose 106 (60-115) mg/dL Calcium 9.3 (8.4-10.2) mg/dL Total Bilirubin 0.4 (0.0-1.0) mg/dL AST 25 (5-31) U/L ALT 26 (0-31) U/L Alkaline Phosphatase 75 (39-117) U/L Total Protein 6.9 (6.5-8.0) g/dL Albumin 4.2 (3.5-5.0) g/dL Urine Color Yellow Urine Appearance Clear Urine pH 5.0 (5.0-9.0) Ur Specific [place] 1.020 (1.005-1.025) Urine Protein Negative (Neg-Trace) mg/dL Urine Glucose (UA) Negative (Negative) mg/dL Urine Ketones Negative (Negative) mg/dL Urine Blood Moderate (2+) H (Negative) Urine Nitrite Negative (Negative) Ur Leukocyte Esterase Trace H (Negative) Urine RBC 0-2 (0-2) /HPF Urine WBC 0-5 (0-5) /HPF Ur Squamous Epith Cells 0-2 (0-2) /HPF Urine Bacteria 1+ (None Seen) Hyaline Casts 0-2 (0-2) /LPF Independent Interpretation I performed an independent interpretation of an: EKG Interpretation: EKG at 09:23 shows normal sinus rhythm at 75 beats per minute. There is left axis deviation. There are findings of LVH. No significant change from previous. Discharge Plan Discharge Clinical Impression: Left-sided headache Patient Disposition: Home, Self-Care Additional Instructions: Your testing in the emergency room today is reassuring. The CT scan does not show any concerning findings. Please try using acetaminophen (Tylenol) as needed for discomfort. You may take 2 extra-strength acetaminophen at a time (2 x 500 mg = 1000 mg) up to 3 times per day. Drink a lot of fluids. Please follow up with your regular doctor. Return to the emergency room if you feel significantly worse. Referrals: Hazel Rivas MD [Primary Care Provider] - (headache) Interventions: ED Discharge Assessment Last Done: 06/13/24 11:46 Discharge Date/Time: 06/13/24 11:54 Print Language: Serbian
[2024-06-13 09:02] LABS: MANUAL DIFF FLAG NO
[2024-06-13 09:04] LABS: Basophils Absolute Auto 0.1 X10*3/uL (0.0-0.2); Basophils Percent Auto 0.7 % (0-2); Eosinophils Absolute Auto 0.2 X10*3/uL (0.0-0.4); Eosinophils Percent Auto 2.4 % (0-4); Hematocrit 42.1 % (37.0-47.0); Imm Gran Abs Auto 0.01 X10*3/uL (0.00-0.03); Imm Gran Pct Auto 0.1 % (0.0-0.4); Lymphocytes Absolute Auto 1.8 X10*3/uL (1.2-4.9); Lymphocytes Percent Auto 24.6 % (20-40); Mean Corpuscular HGB Conc 33.3 g/dl (31.0-35.0); Mean Corpuscular Hemoglobin 29.1 pg (27.0-33.0); Mean Corpuscular Volume 87.5 fL (80.0-98.0); Mean Platelet Volume 9.7 fL (9.4-12.3); Monocytes Absolute Auto 0.6 X10*3/uL (0.1-1.2); Neutrophils Absolute Auto 4.7 x10*3/uL (2.0-8.3); Neutrophils Percent Auto 64.2 % (45-73); Platelet Count 199 X10*3/uL (160-400); Red Blood Count 4.81 X10*6/uL (4.20-5.50); Red Cell Distribution Width 13.3 % (11.0-16.0); White Blood Count 7.4 X10*3/uL (4.8-10.8)
[2024-06-13 09:04] LABS: Appearance Urine Clear; Color Urine Yellow; Glucose Urine UA Negative (Negative); Leukocyte Esterase Urine Trace (Negative); Nitrite Urine Negative (Negative); UMIC TRIGGER UACC YES; Urine Blood Moderate (2+) (Negative); Urine Ketones Negative (Negative); Urine Protein Negative (Neg-Trace)
--- NOTE | 2024-06-13 09:08 | ECG_ITS ---
Test Reason : HYPERTENSION Blood Pressure : / mmHG Vent. Rate : 075 BPM Atrial Rate : 075 BPM P-R Int : 168 ms QRS Dur : 120 ms QT Int : 408 ms P-R-T Axes : 047 -43 094 degrees QTc Int : 455 ms Normal sinus rhythm Left axis deviation Left ventricular hypertrophy with QRS widening and repolarization abnormality ( R in aVL , [place] product , Romhilt-Gomez ) Abnormal ECG When compared with ECG of 29-JUL-2019 09:31, No significant change was found Referred By: Reg Wallace Electronically Signed By:RAMIREZ MANN MD
[2024-06-13 09:13] LABS: Bacteria Urine 1+ (None Seen); Hyaline Casts Urine 0-2 /LPF (0-2); RBC Urine 0-2 /HPF (0-2); Squamous Epithelial Cell Urine 0-2 /HPF (0-2); WBC Urine 0-5 /HPF (0-5)
[2024-06-13 09:16] LABS: Alanine Aminotransferase 26 U/L (0-31); Albumin Level 4.2 g/dL (3.5-5.0); Alkaline Phosphatase 75 U/L (39-117); Anion Gap 11 (12-20); Aspartate Amino Transferase 25 U/L (5-31); Bilirubin Total 0.4 mg/dL (0.0-1.0); Blood Urea Nitrogen 19 mg/dL (9-16); Calcium 9.3 mg/dL (8.4-10.2); Carbon Dioxide 23 mmol/L (22-29); Chloride 111 mmol/L (96-108); Creatinine Clr Calc Pharmacy 87.6; Estimated Glomerular Filt Rate > 60; Glucose Random 106 mg/dL (60-115); Potassium 4.2 mmol/L (3.3-5.1); Sodium 141 mmol/L (135-145); Total Protein 6.9 g/dL (6.5-8.0)
[2024-06-13 11:06] VITALS: BP 135/88; PULSE 70; RESP 12; O2SAT 94
[2024-06-13] MEDS: Acetaminophen 325 MG TABLET 975 MG PO (11:40)
[2024-06-13 11:46] VITALS: BP 135/88; PULSE 70; RESP 18; TEMP 36.6; O2SAT 94
== END 2024-06-13 11:54 | disposition home or self-care (01) ==
PROVIDERS: Emergency Provider Emergency Medicine; PCP Internal Medicine
DX: R51.9 Headache, unspecified (principal)
CPT/HCPCS: 36415; 70450; 80053; 81001; 85025; 93005; 99284; 99285

== ENCOUNTER → 2024-06-13 08:58 | Outpatient (BNV) | payer OTHER, SELFPAY | PROVIDERS: Emergency Provider Emergency Medicine; PCP Internal Medicine; Visit Provider Radiology Vascular & Interventional Radiology | DX: R51.9 Headache, unspecified (principal) | CPT/HCPCS: 70450 ==

== ENCOUNTER → 2024-06-13 09:08 | Outpatient (BNV) | payer OTHER, SELFPAY | PROVIDERS: Emergency Provider Emergency Medicine; PCP Internal Medicine; Visit Provider Internal Medicine Cardiovascular Disease | DX: R94.31 Abnormal electrocardiogram [ECG] [EKG] (principal) | CPT/HCPCS: 93010 ==

== ENCOUNTER 2024-12-11 15:06 | Emergency (ER) | payer OTHER, SELFPAY ==
--- OUTSIDE RECORDS SUMMARY | 2024-08-23 05:00 | XMS_ITS ---
Author Organization [facility] Address [address] [place] [address] Care Team Providers Care Digital Advertising Specialist Name Role Phone Hazel Rivas Primary Care Provider UnavailBrendan Parekh Unavailable [phone] Nath Encounters Encounter Location Date Provider Diagnosis [facility] [address] [address] 08/23/2024 Brendan Bishop Plan Of Treatment Next Appt Details Provider Name:Brendan Bishop , 12/24/2024 03:45:00 PM, [address] [facility], [place] [address], [place], [address], Progress Notes * Claire GODINEZOB:[birth year] (79 yo F)Acc No.[id number]:08/23/2024 Progress Note Patient: Perri ZAMORA Provider: Lianne Bishop DPM :1945 A ge:79 Y S ex:Female Date:08/23/2024 Address:[address] [place] [address] [address] [id number] Pcp:Hazel Rivas Subjective: * Chief Complaints: * [address] Nath. * Medical History: Objective: * Vitals: Assessment: Plan: * Treatment: * Images: * The named appointment provid er may or may not be the originator of this progress note, and it is not deemed complete until electronically signed by the appointment provider. Sign off status: Pending * Provider: Lianne Bishop DPM Date: 0 08/23/2024 Generated for Hector cast/Alejandro/Rhianna on: 0 12/11/2024 05:16 PM EDT
--- NOTE | ~2024-12-11 | XR_ITS ---
EXAMINATION: XR CHEST CLINICAL INFORMATION: chest pain COMPARISON: February 15, 2021 TECHNIQUE: 2 views of the chest were obtained. FINDINGS: There is minimal linear atelectasis in the left lateral lung base. Lungs are clear otherwise. There is no pleural effusion. Heart size is within normal limits. XR/XR chest 2V IMPRESSION: Minimal linear atelectasis left lateral lung base. Electronically signed by: Jurgen Freitas MD 12/11/2024 04:43 PM EDT
--- NOTE | 2024-12-11 15:10 | ECG_ITS ---
Test Reason : palpitation Blood Pressure : */* mmHG Vent. Rate : 87 BPM Atrial Rate : 87 BPM P-R Int : 166 ms QRS Dur : 110 ms QT Int : 358 ms P-R-T Axes : 50 -47 94 degrees QTcB Int : 430 ms Normal sinus rhythm Possible Left atrial enlargement Left anterior fascicular block Left ventricular hypertrophy with repolarization abnormality ( R in aVL , [place] product , Romhilt-Gomez ) Abnormal ECG When compared with ECG of 13-Jun-2024 09:23, No significant change was found Referred By: Generic ED Physician Electronically Signed By: RAMIREZ MANN MD
[2024-12-11 15:42] VITALS: BP 125/87; PULSE 97; RESP 18; TEMP 35.7; O2SAT 95; BMI 30.9
--- NOTE | 2024-12-11 15:43 | ED_ITS ---
HPI - General Adult General Chief complaint: Arrhythmia/Palpitations Stated complaint: interrupted heartbeats Time Seen by Provider: 12/11/24 17:33 Source: patient Mode of arrival: ambulatory Limitations: no limitations History of Present Illness ED Provider: HPI narrative: Patient's history of SVT in the past had an episode of palpitation at noon time lasted about 30 minutes none after that had feels chest heavy with the palpitation no syncope but patient felt dizzy patient's used to have SVT episode in the past but for few years has been doing much better. Denied any caffeine intake denied any passing episode no fever no chills Related Data Previous Rx's ?Medication ?Instructions ?Recorded cefuroxime axetil 250 mg tablet 250 mg PO BID 7 days # 14 tabs 12/11/24 Allergies Allergy/AdvReac Type Severity Reaction Status Date / Time cortisone (CORTISONE) Allergy Mild RASH Verified 12/11/24 15:45 erythromycin base Allergy Unknown RASH Verified 12/11/24 15:45 (ERYTHROMYCIN BASE) nitrofurantoin (From Allergy Unknown RASH Verified 12/11/24 15:45 MACROBID) Sulfa (Sulfonamide Allergy Unknown HIVES Verified 12/11/24 15:45 Antibiotics) (SULFA (SULFONAMIDE ANTIBIOTICS)) tetanus and diphtheria Allergy Unknown UNKNOWN Verified 12/11/24 15:45 toxoids (TETANUS&DIPHTHERIA TOXOID) Cortisone Allergy Unknown Rash Uncoded 12/11/24 15:45 Macrolids Allergy Unknown Rash Uncoded 12/11/24 15:45 sulfa drugs Allergy Unknown Rash Uncoded 12/11/24 15:45 Tetanus Allergy Unknown Rash Uncoded 12/11/24 15:45 tetnaus toxoid Allergy Unknown Rash Uncoded 12/11/24 15:45 Review of Systems 2 Review of Systems: Yes all other systems are reviewed and are negative PMFSH Past Medical History Medical History Shoulder pain, right No known health problems Social History Social History Household Members: Spouse and Children Housing: House Do you presently have visiting nurse or other home services: Yes (son is CREDIT COLLECTIONS CLERK) Alcohol intake: former Patient Tobacco Use Status: Never used Tobacco Use of substances other than those prescribed or required for medical reasons: No Advance Directives: No Advance Directives Information Provided: No Do you have a plan to hurt others: No Plan service: No Current occupational status: unemployed and disabled Physical Exam ED Vital Signs: Vital Signs - 24 hr 12/11/24 15:42 12/11/24 17:18 12/11/24 19:10 Temperature 96.3 F L 98 F 97.6 F Pulse Rate 97 77 75 Respiratory Rate 18 16 27 H Blood Pressure 125/87 121/70 136/66 Pulse Oximetry 95 95 95 Oxygen Delivery Method Room Air Room Air BMI result Body Mass Index 30.9 Appearance: Alert. Oriented X3. No acute distress. Eyes: PERRLA, No Nystagmus ENT: Pharynx normal. Oral Mucosa moist Neck: Normal inspection. Neck supple. CVS: Normal heart rate and rhythm. Pulses normal. Respiratory: No respiratory distress. Equal air entry bilateral, no wheezing/rales/rhonchi Abdomen: Soft and nontender. Bowel sounds are present, no mass palpable, no CVA tenderness Skin: Skin warm and dry. Normal skin color. Normal skin turgor. Extremities: No lower extremity edema. No calf tenderness Neuro: Oriented X 3. No motor deficit. No sensory deficit.No cerebellar signs , cranial nerves II-XII intact Course Course Course Narrative: This is an RME performed by Yolande Evans CNP: Additional HPI, ROS, PE not included below will be deferred to primary provider. patient is a 79-year-old female who presents to the emergency department for evaluation of palpitations with associated chest pain radiating to her neck, denies symptoms at this time. reports 3 occurrences since yesterday, twice today, typically last about 30-40 minutes. Plan: Serum labs, ECG Medications Administered Discontinued Medications Generic Name Dose Route Start Last Admin Trade Name Freq PRN Reason Stop Dose Admin Cefuroxime Axetil 250 mg 12/11/24 18:59 12/11/24 19:09 Cefuroxime Axetil 250 Mg Tablet PO 12/11/24 19:00 250 mg ONCE ONE Administration Medical Decision Making Medical Decision Making [facility] Narrative: Patient's episode of palpitation skipped beats with history of SVT no cardiac arrhythmia noticed during his stay in the hospital labs are stable except for UTI will prescribe cefuroxime for UTI follow up as outpatient Differential Diagnosis Differential Diagnoses: The differential diagnosis associated with the presentation includes Atrial flutter/fibrillation/SVT Lab Data MDM Lab Attestation statement: I reviewed the patient's lab results. 12/11/24 16:11 12/11/24 16:11 Labs: Lab Results 12/11/24 12/11/24 12/11/24 Range/Units 16:11 17:56 18:37 WBC 7.7 (4.8-10.8) X10*3/uL RBC 4.82 (4.20-5.50) X10*6/uL Hgb 14.0 (12.0-16.0) g/dl Hct 42.0 (37.0-47.0) % MCV 87.1 (80.0-98.0) fL MCH 29.0 (27.0-33.0) pg MCHC 33.3 (31.0-35.0) g/dl RDW 14.5 (11.0-16.0) % Plt Count 199 (160-400) X10*3/uL MPV 9.2 L (9.4-12.3) fL Immature Gran % (Auto) 0.1 (0.0-0.4) % Neut % (Auto) 62.4 (45-73) % Lymph % (Auto) 26.4 (20-40) % [place] % (Auto) 8.7 (2-11) % Eos % (Auto) 1.9 (0-4) % Baso % (Auto) 0.5 (0-2) % Lymph # (Auto) 2.0 (1.2-4.9) X10*3/uL [place] # (Auto) 0.7 (0.1-1.2) X10*3/uL Eos # (Auto) 0.2 (0.0-0.4) X10*3/uL Baso # (Auto) 0.0 (0.0-0.2) X10*3/uL Abs Immat Gran (auto) 0.01 (0.00-0.03) X10*3/uL Absolute Neuts (auto) 4.8 (2.0-8.3) x10*3/uL Absolute Nucleated RBC 0.000 (0.0-0.012) X10*3/uL Nucleated RBC % (auto) 0.0 (0.0-0.2) /100WBC Sodium 145 (135-145) mmol/L Potassium 4.0 (3.3-5.1) mmol/L Chloride 109 H (96-108) mmol/L Carbon Dioxide 29 (22-29) mmol/L Anion Gap 11 L (12-20) BUN 16 (9-16) mg/dL Creatinine 0.64 (0.5-1.4) mg/dL Estim Creat Clear Calc 87.3 Estimated GFR > 60 Random Glucose 112 (60-115) mg/dL Calcium 9.8 (8.4-10.2) mg/dL Magnesium 2.1 (1.6-2.6) mg/dL Total Bilirubin 0.3 (0.0-1.0) mg/dL AST 45 H (5-31) U/L ALT 50 H (0-31) U/L Alkaline Phosphatase 77 (39-117) U/L Troponin I High Sens 8.8 11.0 (<3.5-17.0) ng/L B-Natriuretic Peptide 20 (<100) pg/mL Total Protein 6.6 (6.5-8.0) g/dL Albumin 4.2 (3.5-5.0) g/dL TSH 2.87 (0.32-4.0) uIU/mL Urine Color Yellow Urine Appearance Clear Urine pH 6.5 (5.0-9.0) Ur Specific [place] 1.020 (1.005-1.025) Urine Protein Negative (Neg-Trace) mg/dL Urine Glucose (UA) Negative (Negative) mg/dL Urine Ketones Negative (Negative) mg/dL Urine Blood Negative (Negative) Urine Nitrite Negative (Negative) Ur Leukocyte Esterase Moderate (2+) H (Negative) Urine RBC 0-2 (0-2) /HPF Urine WBC 21-50 H (0-5) /HPF Ur Squamous Epith Cells 0-2 (0-2) /HPF Urine Bacteria 1+ (None Seen) Hyaline Casts 0-2 (0-2) /LPF Independent Interpretation I performed an independent interpretation of an: EKG Interpretation: Normal sinus rhythm with ventricular rate of 87 beats per minute LVH no acute STT wave changes no acute ischemia Discharge Plan Discharge Clinical Impression: Palpitations, Acute UTI Patient Disposition: Home, Self-Care Instructions: Heart Palpitations (DC), Urinary Tract Infection in Older Adults (ED) Additional Instructions: Drink plenty of fluids Likely had SVT episodes which he used to have before during stay in the ER no cardiac arrhythmias were noticed Report to the ER if recurrence of the episode Incidentally noticed that you have urinary tract infection drink plenty of fluids and take antibiotic as prescribed Follow up with your quality control industrial engineer for further monitoring Prescriptions: New cefuroxime axetil 250 mg tablet 250 mg PO BID 7 Days Qty: 14 0RF Print Language: Japanese
[2024-12-11 16:15] LABS: MANUAL DIFF FLAG NO
[2024-12-11 16:16] LABS: Hematocrit 42.0 % (37.0-47.0); Hemoglobin 14.0 g/dl (12.0-16.0); Imm Gran Abs Auto 0.01 X10*3/uL (0.00-0.03); Imm Gran Pct Auto 0.1 % (0.0-0.4); Lymphocytes Absolute Auto 2.0 X10*3/uL (1.2-4.9); Mean Corpuscular HGB Conc 33.3 g/dl (31.0-35.0); Mean Corpuscular Hemoglobin 29.0 pg (27.0-33.0); Mean Corpuscular Volume 87.1 fL (80.0-98.0); NRBC Abs Auto 0.000 X10*3/uL (0.0-0.012); NRBC Pct Auto 0.0 /100WBC (0.0-0.2); Platelet Count 199 X10*3/uL (160-400); Red Blood Count 4.82 X10*6/uL (4.20-5.50); White Blood Count 7.7 X10*3/uL (4.8-10.8)
[2024-12-11 16:36] LABS: Troponin-I High Sensitivity 8.8 ng/L (<3.5-17.0)
[2024-12-11 16:37] LABS: B Type Natriuretic Peptide 20 pg/mL (<100)
[2024-12-11 16:38] LABS: Alanine Aminotransferase 50 U/L (0-31); Albumin Level 4.2 g/dL (3.5-5.0); Alkaline Phosphatase 77 U/L (39-117); Anion Gap 11 (12-20); Aspartate Amino Transferase 45 U/L (5-31); Blood Urea Nitrogen 16 mg/dL (9-16); Calcium 9.8 mg/dL (8.4-10.2); Carbon Dioxide 29 mmol/L (22-29); Chloride 109 mmol/L (96-108); Creatinine Clr Calc Pharmacy 87.3; Estimated Glomerular Filt Rate > 60; Magnesium 2.1 mg/dL (1.6-2.6); Potassium 4.0 mmol/L (3.3-5.1); Sodium 145 mmol/L (135-145); Total Protein 6.6 g/dL (6.5-8.0)
--- OUTSIDE RECORDS SUMMARY | 2024-12-11 17:16 | XMS_ITS | Clinical Summary ---
Author Organization [facility] Address [address] [place] [address] Care Team Providers Care Block Mason Name Role Phone Kira Ford DO Primary Care P rovider Social History Tobacco Use Types Packs/Day Years Used Date Smoking Tobacco: Never Assessed Sex and Gender Information Value Date Recorded Sex Assigned at Not on file Gender Identity Not on file Sexual Orientation Not on file Plan of Treatment Health Maintenance Due Date Last Done Comments Hepatitis C Screening 1945 COVID-19 Vaccine (#1) 1945 Depression Screening 1959 Preventative Health Evaluation 1965 DTap / Tdap / Td (1 - Tdap) 1966 Shingrix-Zoster Vaccine (1 of 2) 1997 Fall Risk Assessment 2012 Osteoporosis Screening (DEXA Scan) 2012 Pneumococcal Vaccine (1 of 1 - PCV) 2012 RSV Adult > 60+ Yrs or Pregn ant (1 - 1-dose 75+ series) 2022 Influenza Vaccine (Season Ended) 2025 Hepatitis B Vaccines Aged Out No long er eligible based on patient's age to complete this topic RSV Ped < 20 months Aged Out No longe r eligible based on patient's age to complete this topic Care Teams Block Mason Relationship Specialty Start Date End Date Kira Ford DO PCP - General Online Community Manager 08/08/20
[2024-12-11 17:18] VITALS: BP 121/70; PULSE 77; RESP 16; TEMP 36.6; O2SAT 95
--- NOTE | 2024-12-11 17:56 | PC.NURSE ---
Patient [place], A&O x 3. Patient presents to ED c/o chest pressure non radiating and palpitations . Denies pain, SOB, dizziness, n/v. The chest pressure started yesterday for about 15min and started again today for about 45 mins. Patient denies feeling the pressure at this time. VSS and up to date, patient on media monitor NSR 75 BPM. Urine sample collected/sent. Provider in to see patient. Plan of care on going.
--- NOTE | 2024-12-11 17:58 | MHC.EDTECH ---
Patient said , she fell and hit her head yesterday HALI kurtz.
[2024-12-11 18:08] LABS: Appearance Urine Clear; Glucose Urine UA Negative (Negative); PH 6.5 (5.0-9.0); Specific Gravity - Urine 1.020 (1.005-1.025); UMIC TRIGGER UACC YES
[2024-12-11 18:17] LABS: UACC Culture Trigger YES
[2024-12-11 19:05] LABS: Troponin-I High Sensitivity 11.0 ng/L (<3.5-17.0)
[2024-12-11 19:10] VITALS: BP 136/66; PULSE 75; RESP 27; TEMP 36.4; O2SAT 95
[2024-12-11 19:47] VITALS: BP 134/71; PULSE 76; RESP 18; TEMP 36.4; O2SAT 96
== END 2024-12-11 19:51 | disposition home or self-care (01) ==
PROVIDERS: Nurse Practitioner Family; Emergency Provider Internal Medicine; PCP Internal Medicine
DX: N39.0 Urinary tract infection, site not specified (principal); I49.9 Cardiac arrhythmia, unspecified; R00.2 Palpitations; R42 Dizziness and giddiness; Z79.899 Other long term (current) drug therapy
CPT/HCPCS: 36415; 71046; 80053; 81001; 83735; 83880; 84443; 84484; 85025; 87086; 87088; 87186; 93005; 99283; 99285

== ENCOUNTER → 2024-12-11 15:10 | Outpatient (BNV) | payer OTHER, SELFPAY | PROVIDERS: Emergency Provider Internal Medicine; PCP Internal Medicine; Visit Provider Internal Medicine Cardiovascular Disease | DX: I44.4 Left anterior fascicular block (principal); I51.7 Cardiomegaly | CPT/HCPCS: 93010 ==

== ENCOUNTER → 2024-12-11 15:45 | Outpatient (BNV) | payer OTHER, SELFPAY | PROVIDERS: PCP Internal Medicine; Visit Provider Radiology Diagnostic Radiology | DX: R07.9 Chest pain, unspecified (principal) | CPT/HCPCS: 71046 ==